=== PATIENT | male | born 1950 | race Caucasian/White ===

== ENCOUNTER 2024-12-20 05:52 | Inpatient (IN) ==
--- NOTE | 2024-11-23 14:50 | PAT Medication Instructions ---
Medication Instructions Date of Service November 23, 2024 Home Medications amlodipine 5 mg tablet 5 mg PO DAILY aspirin 81 mg tablet 81 mg PO DAILY betamethasone dipropionate 0.05 % topical cream 1 applic topical DAILY PRN Skin Irritation cetirizine 10 mg tablet 10 mg PO DAILY cholecalciferol (vitamin D3) 50 mcg (2,000 unit) tablet (Vitamin D3) 50 mcg PO DAILY clonazepam 0.5 mg tablet 0.5 mg PO DAILY ferrous sulfate 325 mg (65 mg iron) tablet (Iron (ferrous sulfate)) 325 mg PO UD fluticasone propionate 50 mcg/actuation nasal spray,suspension 1 spray intranasal DAILY glipizide 10 mg tablet 50 mg PO BID lansoprazole 30 mg capsule,delayed release (Prevacid) 30 mg PO DAILY lisinopril 10 mg tablet 10 mg PO DAILY melatonin 10 mg tablet 10 mg PO HS montelukast 10 mg tablet 10 mg PO DAILY multivitamin 1 tab PO DAILY propranolol 20 mg tablet 20 mg PO BID rosuvastatin 40 mg tablet 40 mg PO DAILY travoprost 0.004 % eye drops (Travatan Z) 1 drp ophthalmic (eye) DAILY venlafaxine 150 mg capsule,extended release 24 hr 150 mg PO DAILY zinc 50 mg tablet 50 mg PO DAILY ASK your prescriber and surgeon aspirin 81 mg tablet 81 mg PO DAILY STOP taking 24 hours before surgery betamethasone dipropionate 0.05 % topical cream 1 applic topical DAILY PRN Skin Irritation DO NOT take the morning of surgery cetirizine 10 mg tablet 10 mg PO DAILY cholecalciferol (vitamin D3) 50 mcg (2,000 unit) tablet (Vitamin D3) 50 mcg PO DAILY ferrous sulfate 325 mg (65 mg iron) tablet (Iron (ferrous sulfate)) 325 mg PO UD glipizide 10 mg tablet 50 mg PO BID lisinopril 10 mg tablet 10 mg PO DAILY montelukast 10 mg tablet 10 mg PO DAILY multivitamin 1 tab PO DAILY zinc 50 mg tablet 50 mg PO DAILY Take morning of surgery With a small sip of water, OTHERWISE NOTHING TO EAT OR DRINK AFTER MIDNIGHT: amlodipine 5 mg tablet 5 mg PO DAILY clonazepam 0.5 mg tablet 0.5 mg PO DAILY fluticasone propionate 50 mcg/actuation nasal spray,suspension 1 spray intranasal DAILY lansoprazole 30 mg capsule,delayed release (Prevacid) 30 mg PO DAILY propranolol 20 mg tablet 20 mg PO BID rosuvastatin 40 mg tablet 40 mg PO DAILY travoprost 0.004 % eye drops (Travatan Z) 1 drp ophthalmic (eye) DAILY venlafaxine 150 mg capsule,extended release 24 hr 150 mg PO DAILY Take evening before surgery glipizide 10 mg tablet 50 mg PO BID melatonin 10 mg tablet 10 mg PO HS propranolol 20 mg tablet 20 mg PO BID Other Notes If you have any questions please call us at [phone] or [phone] or [phone] or [phone]
--- NOTE | 2024-11-28 12:21 | Anesthesiology Consultation ---
Date of Service November 28, 2024 Assessment & Plan (1) Encounter for pre-operative examination: - Check BSG DOS - Infectious disease screening: Per assessment on 11/28/24- No known recent infectious disease contacts or current infectious disease symptoms. - Patient acceptable risk for surgery pending surgeon-ordered PCP preop evaluation (Dr. Stephanie Wallace/Oniel, appt 12/07). Chart Review Chart Review: Patient seen in Pre Admission Testing Teaching & Discussion Pre-Anesthesia Teaching/Discussion Notes: Instructed NPO after midnight before surgery,except medications with 15 cc of water. Medication instructions provided according to the PAT guidelines. History Surgery Operation Date: 12/20/24 07:45 Proposed Procedures p L2-S1 Decompression and Fusion Spinal Cord Monitoring - Evangelist Kaplan, Height/Weight Height: 5 ft 9 in Weight: 87.3 kg Allergies Allergy/AdvReac Type Severity Reaction Status Date / Time No Known Allergies Allergy Verified 11/20/24 14:58 Medications Home Medications Medication Instructions Recorded Confirmed Last Taken amlodipine 5 mg tablet 5 mg PO DAILY 11/20/24 11/20/24 Unknown aspirin 81 mg tablet 81 mg PO DAILY 11/20/24 11/20/24 Unknown betamethasone dipropionate 0.05 % 1 applic topical DAILY PRN Skin 11/20/24 11/20/24 Unknown topical cream Irritation cetirizine 10 mg tablet 10 mg PO DAILY 11/20/24 11/20/24 Unknown clonazepam 0.5 mg tablet 0.5 mg PO DAILY 11/20/24 11/20/24 Unknown ferrous sulfate 325 mg (65 mg 325 mg PO UD 11/20/24 11/20/24 Unknown iron) tablet (Iron (ferrous sulfate)) fluticasone propionate 50 1 spray intranasal BID 11/20/24 11/28/24 Unknown mcg/actuation nasal spray,suspension glipizide 10 mg tablet 10 mg PO DAILY 11/20/24 11/28/24 Unknown lansoprazole 30 mg capsule,delayed 30 mg PO DAILY 11/20/24 11/20/24 Unknown release (Prevacid) lisinopril 10 mg tablet 10 mg PO DAILY 11/20/24 11/20/24 Unknown melatonin 10 mg tablet 10 mg PO HS 11/20/24 11/20/24 Unknown montelukast 10 mg tablet 10 mg PO DAILY 11/20/24 11/20/24 Unknown multivitamin 1 tab PO DAILY 11/20/24 11/20/24 Unknown propranolol 20 mg tablet 20 mg PO BID 11/20/24 11/20/24 Unknown rosuvastatin 40 mg tablet 40 mg PO DAILY 11/20/24 11/20/24 Unknown travoprost 0.004 % eye drops 1 drp ophthalmic (eye) DAILY 11/20/24 11/20/24 Unknown (Travatan Z) venlafaxine 150 mg 150 mg PO DAILY 11/20/24 11/20/24 Unknown capsule,extended release 24 hr zinc 50 mg tablet 50 mg PO DAILY 11/20/24 11/20/24 Unknown cholecalciferol (vitamin D3) 100 PO DAILY 11/28/24 Unknown mcg (4,000 unit) capsule Past Medical History Medical History Anxiety and depression Diabetes mellitus, type 2 NIDDM Dysphagia Chronic, ongoing- specifically with pills; symptoms at baseline s/p unremarkable workup including barium swallow History of hypertension Hx of gastroesophageal reflux (GERD) Hx of hyperlipidemia Sleep apnea CPAP (compliant) Exercise / Class Metabolic Activity II 4-5 Yardwork/Stairs/Walk up hill Past Surgical History Surgical History Hx of colonoscopy ~2016 Hx of meniscectomy of right knee Hx of nasal polypectomy multiple Hx of tonsillectomy Hx of wisdom tooth extraction Nausea and vomiting after administration of anesthetic agent Past Anesthesia History No Hx of Anesthesia Complications and No Family Hx of Anesthesia Complications History of PONV No Hx of Motion Sickness and History of PONV Social History Smoking Status: Former smoker Do You Dip or Chew Tobacco: No Smoking End Date: Remote hx (4 years in college) Hx Alcohol Use: Yes (rarely) alcohol intake frequency: holidays/special occasions only Hx Substance Use: No substance use type: does not use Review of Systems Patient denies chest pain, shortness of breath, dyspnea on exertion, fever, chills, cough, wheezing. Physical Exam Vital Signs BP 146/82 P 53 TEMP 97.9 SP02 97%RA RESP 18 Physical Full cervical extension range of motion. Full TMJ range of motion. TMD > 3.5 finger breaths Mallampati Score IV Dentition: missing molars, dental jew/"re-crowned" (patient unsure of location) Lungs: clear throughout to auscultation Cardiac: regular rate and rhythm, no murmurs noted Spine: normal Carotid arteries: negative bruit Extremities: no LE edema ENMT Mouth: + dentures Lab Results Anesthesia Preop Results Results Anesthesia Widget: WBC 5.73 K/ul (4.8-10.8) 11/28/24 Hgb 13.2 g/dl (14.0-18.0) L 11/28/24 Hct 39.8 % (42.0-52.0) L 11/28/24 Plt 214 K/uL (130-400) 11/28/24 Na 139 mmol/L (136-145) 11/28/24 K 5.0 mmol/L (3.5-5.1) 11/28/24 Cl 104 mmol/L (98-107) 11/28/24 CO2 31 mmol/L (21-32) 11/28/24 BUN 14 mg/dl (6-23) 11/28/24 Creat 0.90 mg/dl (0.6-1.4) 11/28/24 Glucose Level 133 mg/dl (70-99(Fasting)) H 11/28/24 PT 10.9 Seconds (9.0-12.0) 11/28/24 PTT 28 Seconds (21-31) 11/28/24 INR 1.0 (0.9-1.1) 11/28/24 HA1c 7.6 % (4.5-5.6) H 11/28/24 Urine Color Yellow 11/28/24 Urine Appearance Clear (Clear) 11/28/24 Urine pH 7.5 (4.5-7.5) 11/28/24 Urine Specific [place] 1.012 (1.000-1.030) 11/28/24 Urine Protein Negative (Negative) 11/28/24 Urine Glucose (UA) Negative (Negative) 11/28/24 Urine Ketones Negative (Negative) 11/28/24 Urine Blood Negative (Negative) 11/28/24 Urine Nitrite Negative (Negative) 11/28/24 Urine Bilirubin Negative (Negative) 11/28/24 Urine Urobilinogen Negative (Negative) 11/28/24 Urine Leukocyte Esterase Negative (Negative) 11/28/24 Blood Type A Positive 11/28/24 Antibody Screen NEGATIVE 11/28/24 Testing Electrocardiogram Date: 11/28/24 SB at 52bpm. "Otherwise normal ECG" Chest X-Ray Date: 11/28/24 Findings: + NAD
[2024-12-20] MEDS: ACETAMINOPHEN 500 MG TAB PO SCH (06:35)
[2024-12-20] MEDS: LR 15ML/HR IV SCH (06:36)
[2024-12-20] MEDS: CeleBREX 200 MG CAP PO SCH (06:36)
[2024-12-20] MEDS: LR 60ML/HR IV SCH (06:36)
[2024-12-20] MEDS: GABAPENTIN 300 MG CAP PO SCH (06:36)
[2024-12-20] MEDS ORDERED: ONDANSETRON INJ 2 MG/ML 2 ML VIAL IV PRN ×2 (06:58→15:40)
[2024-12-20] MEDS ORDERED: ATROPINE SULFATE 0.1 MG/ML 10ML SYR IV PRN (06:58)
[2024-12-20] MEDS ORDERED: HYDROmorphone INJ 2 MG/ML SYR/VIAL IV PRN (06:58)
[2024-12-20] MEDS ORDERED: PROMETHAZINE HCL 6.25 MG in SODIUM CHLORIDE 0.9% 50 ML IV PRN (06:58)
[2024-12-20] MEDS ORDERED: LIDOCAINE 2% 2 ML VIAL/AMP(20MG/ML) INFIL ONE (07:10)
[2024-12-20] MEDS ORDERED: PROPOFOL IV EMULSION 10 MG/ML 20 ML VIAL IV ONE (07:10)
[2024-12-20] MEDS ORDERED: ONDANSETRON INJ 2 MG/ML 2 ML VIAL ONE (07:10)
[2024-12-20] MEDS ORDERED: DEXAMETHASONE SOD INJ 4 MG/ML VIAL ONE (07:10)
[2024-12-20] MEDS ORDERED: ROCURONIUM BROMIDE 10 MG/ML 5 ML VIAL IV ONE ×2 (07:10→08:10)
[2024-12-20] MEDS ORDERED: MIDAZOLAM HCL 1 MG/ML 2ML VIAL ONE (07:11)
--- NOTE | 2024-12-20 07:37 | History & Physical Bridge Note ---
Date of Service December 20, 2024 History & Physical Bridge Note I have examined the patient, reviewed the History & Physical and in the interval since the performance of the History & Physical I have noted the following changes of clinical significance: no changes noted
--- NOTE | 2024-12-20 07:38 | History & Physical Report ---
Date of Service December 20, 2024 Assessment & Plan (1) Two-level lumbosacral spondylosis with radiculopathy: Plan: L2-S1 decompression and fusion History of Present Illness Chief Complaint: Back and bilateral leg pain Primary Care Provider: KLEBER Jc This is a 74-year-old male who presents with chronic persistent back and bilateral leg pain after failing course of nonoperative care is here for surgical invention. Allergies Allergy/AdvReac Type Severity Reaction Status Date / Time No Known Allergies Allergy Verified 12/20/24 06:10 Home Medications Medication Instructions Recorded Confirmed Type amlodipine 5 mg tablet 5 mg PO DAILY 11/20/24 12/20/24 History aspirin 81 mg tablet 81 mg PO DAILY 11/20/24 12/20/24 History betamethasone dipropionate 0.05 % 1 applic topical DAILY PRN Skin 11/20/24 12/20/24 History topical cream Irritation cetirizine 10 mg tablet 10 mg PO DAILY 11/20/24 12/20/24 History clonazepam 0.5 mg tablet 0.5 mg PO QPM 11/20/24 12/20/24 History ferrous sulfate 325 mg (65 mg 325 mg PO UD 11/20/24 12/20/24 History iron) tablet (Iron (ferrous sulfate)) fluticasone propionate 50 1 spray intranasal BID 11/20/24 12/20/24 History mcg/actuation nasal spray,suspension glipizide 10 mg tablet 10 mg PO DAILY 11/20/24 12/20/24 History lansoprazole 30 mg capsule,delayed 30 mg PO DAILY 11/20/24 12/20/24 History release (Prevacid) lisinopril 10 mg tablet 10 mg PO DAILY 11/20/24 12/20/24 History melatonin 10 mg tablet 10 mg PO HS 11/20/24 12/20/24 History montelukast 10 mg tablet 10 mg PO DAILY 11/20/24 12/20/24 History multivitamin 1 tab PO DAILY 11/20/24 12/20/24 History propranolol 20 mg tablet 20 mg PO BID 11/20/24 12/20/24 History rosuvastatin 40 mg tablet 40 mg PO DAILY 11/20/24 12/20/24 History travoprost 0.004 % eye drops 1 drp ophthalmic (eye) DAILY 11/20/24 12/20/24 History (Travatan Z) venlafaxine 150 mg 150 mg PO DAILY 11/20/24 12/20/24 History capsule,extended release 24 hr zinc 50 mg tablet 50 mg PO DAILY 11/20/24 12/20/24 History cholecalciferol (vitamin D3) 100 4,000 unit PO DAILY 11/28/24 12/20/24 History mcg (4,000 unit) capsule Past Med/Surg History Problem List (Updated 12/20/24 @ 07:38 by Evangelist Kaplan DO) Two-level lumbosacral spondylosis with radiculopathy Encounter for pre-operative examination Medical History Anxiety and depression Diabetes mellitus, type 2 NIDDM Dysphagia Chronic, ongoing- specifically with pills; symptoms at baseline s/p unremarkable workup including barium swallow History of hypertension Hx of gastroesophageal reflux (GERD) Hx of hyperlipidemia Sleep apnea CPAP (compliant) Surgical History Hx of colonoscopy ~2016 Hx of meniscectomy of right knee Hx of nasal polypectomy multiple Hx of tonsillectomy Hx of wisdom tooth extraction Nausea and vomiting after administration of anesthetic agent Social History Smoking Status: Former smoker Smoking End Date: Remote hx (4 years in college); Second Hand Exposure: No; Do You Dip or Chew Tobacco: No; Tobacco Cessation Education Requested by Patient: No Hx Alcohol Use: Yes (rarely) Hx Substance Use: No Preferred Language: Mohawk Communication Ability: Effective Medical Transcriptionist Required: No Beliefs That Will Affect Care: None Current Living Situation: Spouse Other Information That Helps Us Care for You: No Feels Safe at Home: Yes Safety Concerns: Feels Safe At This Time Assistive Devices: Glasses Physical Exam Physical Exam: Patient is alert and oriented Heart regular rhythm Lungs clear Results & Data Results & Data Vital Signs (Past 12 Hours) Vital Signs Temp Pulse Resp BP Pulse Ox O2 Del Method 12/20/24 06:12 36.8 C 53 L 20 163/74 H 97 Room Air
[2024-12-20] MEDS ORDERED: SCOPOLAMINE 1 MG/72 HR TDSY PATCH TD ONE (07:39)
[2024-12-20] MEDS: BUPIVACAINE/EPINEPHRINE 0.25% 1:200,000 30 ML VIAL ONE (08:12)
[2024-12-20] MEDS ORDERED: ePHEDrine sulfate 50 MG/5 ML SYR ONE (09:13)
[2024-12-20] MEDS ORDERED: PHENYLEPHRINE 100MCG/ML 5ML SYR ONE (09:13)
[2024-12-20] MEDS ORDERED: SUGAMMADEX SODIUM 200 MG/2 ML VIAL IV ONE (09:53)
[2024-12-20] MEDS: FLOSEAL HEMOSTATIC MATRIX 10ML TOP ONE (10:20)
[2024-12-20] MEDS: ceFAZolin 330 MG/ML 1 GM VIAL ONE (10:24)
--- NOTE | 2024-12-20 10:34 | Fluoroscopy Report ---
FL lumbar spine 2-3V CLINICAL HISTORY: L2-S1 DECOMPRESSION AND FUSION COMPARISON STUDY: None FLUOROSCOPY TIME: 28 seconds FLUOROSCOPY IMAGES: 4 EXPOSURE DOSE: 20 mGy FINDINGS: Fluoroscopy was provided for lower lumbar fusion. IMPRESSION: Intraoperative fluoroscopy. ACT 112: Negative or not required by law. Electronically signed by: Adelfo Mejia M.D. 12/20/2024 10:32 AM
--- NOTE | 2024-12-20 10:34 | Operative Report ---
Post Operative Report Pre & Post Diagnosis Operation Date: 12/20/24 07:45 Pre-Op Diagnosis: #1 multilevel lumbar spondylosis with radiculopathy #2 lumbar spinal stenosis Post-Op Diagnosis: Same I identified the patient and participated in the time-out.: Yes Procedure Operation Date: 12/20/24 07:45 Actual Procedures #1 lumbar decompression with bilateral medial facetectomies and foraminotomies L2-L3, L3-L4, L4-L5 and L5-S1. #2 posterior spinal fusion L3-S1. #3 placement posterior segmental instrumentation L3-S1 using Augustine. #4 interbody fusion L3- L4, L4-5 and L5-S1. #5 placement of Spira 12 x 26 mm at L3-L4, 11 x 26 mm x 2 at L4-5 and 14 x 26 mm x 2 at L5-S1. #6 placement locally harvested morselized autograft in the posterior lower gutters. #7 placement infuse collagen sponge combined with Koros in the posterior lateral gutters and os design and interbody space. #8 application of versa wrap of the exposed dura. Surgeon Evangelist Kaplan, DO It Architecture Consultant Meagan Anthony Estimated Blood Loss 400 Findings Consistent with Post-Op Diagnosis Specimens None Indications This is a 74-year-old male presents from his diagnosis of failed course of nonoperative care is here for surgical invention. Description of Procedure Patient was met with identified informed consent obtained. Patient was then taken to the operative suite underwent and patient placed in a prone position on the New table atop the Tereso frame. All bony prominences well-padded eyes inspected to ensure no external precipice upon them. This point the lumbar spine was prepped and draped in normal sterile fashion. Sharp dissection with the assistance of Bovie cautery from down to and exposing the lamina transverse processes of L3-L4-L5 and the sacral ala bilaterally. From a caudal to cephalad fashion complete laminectomy L5 L4 L3 and partial laminectomy of L2 was performed including bilateral medial facetectomies and foraminotomies addressing severe neural compression. Pedicle screws were then placed at L3-L4-L5 and S1 bilaterally. Proper sized lyndon was then placed. By way the transforaminal approach on the right discectomy of L5-S1 was performed endplates corrected to subcortical being bone and a 14 x 26 mm spiral cage tapped into position. Then proceeded to the left transforaminal region at L4-5 S1. Again discectomy performed. Endplates guided to subcortical bleeding bone and a second 14 x 26 mm spiral cage tapped into position. Then proceeded L4-[address] of transfer approach and left discectomy performed. Endplates cut the distal cortical bleeding bone. A 11 x 26 mm spiral cage tapped in position. Then proceeded the right transforaminal region at L4-5. Discectomy performed. Endplates guided to subcortical bleeding bone. A second 11 x 26 mm spiral cage tapped in position and lastly approached L3-L4 and by way of transforaminal portion of right a complete discectomy was performed. Endplates guided to subcortical bleeding bone. A 12 x 26 mm spiral cage tapped into position. Please note all cages were packed with os design bone graft prior to placement. The rods were then compressed locked in final position bilaterally. The transverse processes of L3-L4-L5 and the sacral ala burred to subcortical bleeding bone. Infuse collagen sponge, with Koros and local autograft placement posterior gutters. First wrap placed over the exposed dura. 15 round KARSON drain inserted. The incision was then closed with 1 Vicryl the fascia 2-0 Vicryl subcutaneously and 4 Monocryl for final skin closure. Steri-Strips and sterile dressing placed. Patient waken taken to PACU in stable condition. Please note Meagan Anthony was present at the entire procedure and on the patient positioning complex portion of the surgery and final skin closure. Im ordering 10 grams of Collagen Powder ([facility] A6010 Primary Dressing) and 10 bordered super absorbent ([facility] A6196 Sec ondary Dressing) to treat an incision wound that was caused by a spine procedure. The incision is approximately 2 cm(W) x 2 cm(L) down to the spinal column and epidural space 2 cm (D) in size and is a full thickness wound showing no signs of infection. Collagen comes in 1 gram packets so 10 packets were ordered. Given the size of the wound, with moderate exudate I chose to order a 10 day supply. The patient will be provided instructions for proper application of the collagen wound kit. The patient will be asked to apply the collagen powder daily and then cover it with sterile dressings dispensed. Collagen was selected as I expect the collagen to attract monocytes and fibroblasts, act as a sacrificial substrate for MMPs, and ultimately proved a matrix for tissue and vessel growth. The collagen will act as a primary dressing in this scenario. It is medically necessary for proper healing of these wounds to improve bioavailability and contact with each wound surface, this is also to help prevent infection of wounds and promote healing ultimately leading to a better healing outcome and limit the risk of infection. I attest to the content of the Intraoperative Record and any orders documented therein. Any exceptions are noted below.
--- NOTE | 2024-12-20 14:13 | Anesthesiology Progress Note ---
Date of Service December 20, 2024 Anesthesia Post Procedure Vital Signs Vital Signs: Temp Pulse Resp BP Pulse Ox O2 Del Method O2 Flow Rate 12/20/24 13:55 54 L 15 107/60 95 Oxymask 7 12/20/24 13:45 54 L 18 99/49 L 92 Oxymask 8 12/20/24 13:35 53 L 19 107/57 L 93 Oxymask 8 12/20/24 13:25 53 L 17 107/80 93 Oxymask 8 12/20/24 13:15 53 L 19 104/55 L 90 Oxymask 8 12/20/24 13:05 54 L 13 104/49 L 94 Oxymask 8 12/20/24 12:55 56 L 17 116/57 L 92 Oxymask 8 12/20/24 12:45 53 L 16 117/57 L 92 Oxymask 8 12/20/24 12:35 53 L 18 116/58 L 92 Oxymask 8 12/20/24 12:25 54 L 18 115/60 95 Oxymask 8 12/20/24 12:15 51 L 17 117/49 L 93 Oxymask 15 12/20/24 12:05 52 L 14 110/52 L 97 Oxymask 15 12/20/24 11:55 36 C L 53 L 20 121/67 96 Oxymask 15 12/20/24 11:45 50 L 13 111/62 93 Oxymask 15 12/20/24 11:35 51 L 13 125/68 93 Oxymask 15 12/20/24 11:25 52 L 13 116/64 92 Oxymask 15 12/20/24 11:15 55 L 12 134/74 91 Oxymask 15 12/20/24 11:05 57 L 13 133/75 91 Oxymask 15 12/20/24 10:56 36 C L 56 L 16 190/79 H 91 Oxymask 15 12/20/24 06:12 36.8 C 53 L 20 163/74 H 97 Room Air Transfer of Care Handoff Completed per policy Notes Mental Status: alert / awake / arousable and participated in evaluation Patient Amnestic to Procedure: Yes Nausea / Vomiting: adequately controlled Pain: adequately controlled Airway Patency, RR, SpO2: stable & adequate BP & HR: stable & adequate Hydration State: stable & adequate Anesthetic Complications: no major complications apparent Notes: Pt somnolent post-op with SaO2 low 90's on oxygen. Responds to verbal. HR, BP wnl. Encouraged deep breathing, provided incentive spirometer, continue supplemental oxygen. Plan telemetry admission for monitoring.
--- NOTE | 2024-12-20 14:35 | Consultation ---
Date of Consultation December 20, 2024 Assessment & Plan (1) Postoperative hypoxemia: Status post L3-S1 decompression and fusion Noted to be hypoxic following the procedure and has been requiring 8 L to maintain saturation Discussed with anesthesiologist and this is likely secondary to effect of anesthetics and also pain medication Expected to improve within next few hours or so Remains pleasantly confused but no other distress Will check labs and electrolytes and also get an EKG Will be observed in telemetry unit overnight CXR showed mild CHF -received 20mg Lasix IV K was 6.4-Received Killian Gluconate,Insulin and dextrose and Albuterol nebs Will repeat at 8:30 Ekg- Normal (2) Two-level lumbosacral spondylosis with radiculopathy: As above Management will be asked for orthospine Minimal back pain and known radiculopathy (3) Sleep apnea: (4) Anxiety and depression: Will continue his usual medications (5) Diabetes mellitus, type 2: Will put him on sliding scale insulin (6) History of hypertension: Blood pressure remains on the lower side at 107/60 (7) Hx of hyperlipidemia: Continue statin DVT prophylaxis- as per Ortho CODE STATUS full Hospitalist service will follow the patient with you in the hospital History of Present Illness Requesting Physician: Dr. Kaplan Reason for Consultation: Postop management Attending Physician: Evangelist Kaplan, DO History of Present Illness He is a 74-year-old male significant past medical history of sleep apnea, anxiety and depression, GERD, hypertension, hyperlipidemia and type 2 diabetes apparently underwent L3-S1 decompression and fusion today. He has had preop clearance before the procedure which was reviewed and following the procedure he was noted to be very sleepy and confused and also requiring high flow oxygen to maintain saturation. Denies any chest pain, palpitation, any shortness of breath, any abdominal pain nausea or vomiting. He was observed for couple of hours following the procedure and oxygen requirements remain 7 L/min and at that point he was transferred to telemetry unit to observe overnight. Allergies Allergy/AdvReac Type Severity Reaction Status Date / Time No Known Allergies Allergy Verified 12/20/24 06:10 Home Medications Medication Instructions Recorded Confirmed Type amlodipine 5 mg tablet 5 mg PO DAILY 11/20/24 12/20/24 History aspirin 81 mg tablet 81 mg PO DAILY 11/20/24 12/20/24 History betamethasone dipropionate 0.05 % 1 applic topical DAILY PRN Skin 11/20/24 12/20/24 History topical cream Irritation cetirizine 10 mg tablet 10 mg PO DAILY 11/20/24 12/20/24 History clonazepam 0.5 mg tablet 0.5 mg PO QPM 11/20/24 12/20/24 History ferrous sulfate 325 mg (65 mg 325 mg PO UD 11/20/24 12/20/24 History iron) tablet (Iron (ferrous sulfate)) fluticasone propionate 50 1 spray intranasal BID 11/20/24 12/20/24 History mcg/actuation nasal spray,suspension glipizide 10 mg tablet 10 mg PO DAILY 11/20/24 12/20/24 History lansoprazole 30 mg capsule,delayed 30 mg PO DAILY 11/20/24 12/20/24 History release (Prevacid) lisinopril 10 mg tablet 10 mg PO DAILY 11/20/24 12/20/24 History melatonin 10 mg tablet 10 mg PO HS 11/20/24 12/20/24 History montelukast 10 mg tablet 10 mg PO DAILY 11/20/24 12/20/24 History multivitamin 1 tab PO DAILY 11/20/24 12/20/24 History propranolol 20 mg tablet 20 mg PO BID 11/20/24 12/20/24 History rosuvastatin 40 mg tablet 40 mg PO DAILY 11/20/24 12/20/24 History travoprost 0.004 % eye drops 1 drp ophthalmic (eye) DAILY 11/20/24 12/20/24 History (Travatan Z) venlafaxine 150 mg 150 mg PO DAILY 11/20/24 12/20/24 History capsule,extended release 24 hr zinc 50 mg tablet 50 mg PO DAILY 11/20/24 12/20/24 History cholecalciferol (vitamin D3) 100 4,000 unit PO DAILY 11/28/24 12/20/24 History mcg (4,000 unit) capsule Patient History Medical History Anxiety and depression Diabetes mellitus, type 2 NIDDM Dysphagia Chronic, ongoing- specifically with pills; symptoms at baseline s/p unremarkable workup including barium swallow History of hypertension Hx of gastroesophageal reflux (GERD) Hx of hyperlipidemia Sleep apnea CPAP (compliant) Surgical History Hx of colonoscopy ~2017 Hx of meniscectomy of right knee Hx of nasal polypectomy multiple Hx of tonsillectomy Hx of wisdom tooth extraction Nausea and vomiting after administration of anesthetic agent Social History Smoking Status: Former smoker Smoking End Date: Remote hx (4 years in college); Second Hand Exposure: No; Do You Dip or Chew Tobacco: No; Tobacco Cessation Education Requested by Patient: No Hx Alcohol Use: Yes (rarely) Hx Substance Use: No Preferred Language: Burundian Communication Ability: Effective Sample Distributor Required: No Beliefs That Will Affect Care: None Current Living Situation: Spouse Other Information That Helps Us Care for You: No Feels Safe at Home: Yes Safety Concerns: Feels Safe At This Time Assistive Devices: Glasses Review of Systems Review of Systems: All systems reviewed and are unremarkable except as noted below Physical Exam Physical Exam: Lying in bed without any acute distress Constitutional: well developed, well nourished and + ill appearing; no acute distress Eyes: PERRL, conjunctivae normal, anicteric sclerae ENMT: external ear and nose normal, oropharynx normal Neck: trachea midline, no thyromegaly Respiratory: no respiratory distress Auscultation: lungs clear to auscultation bilaterally Cardiovascular: Rate/Rhythm: regular rate, regular rhythm and + bradycardic Heart Sounds: normal S1 and normal S2; no murmur Extremities: no edema Gastrointestinal (Abdomen): Inspection/Auscultation: normal bowel sounds; abdomen not distended Percussion/Palpation: abdomen soft; abdomen nontender Musculoskeletal: No acute arthritis involving any of the joint Skin: no rashes, warm and dry Neurologic: normal touch/pain/proprioception, moves all extremities, awake and + confused ( pleasantly confused); no focal motor deficits Very weak and little drowsy likely due to effect of anesthetics and pain medications Lymphatic: no cervical or axillary lymphadenopathy Results & Data Vital Signs (Past 12 Hours) Vital Signs Temp Pulse Resp BP Pulse Ox O2 Del Method O2 Flow Rate 12/20/24 13:55 54 L 15 107/60 95 Oxymask 7 12/20/24 13:45 54 L 18 99/49 L 92 Oxymask 8 12/20/24 13:35 53 L 19 107/57 L 93 Oxymask 8 12/20/24 13:25 53 L 17 107/80 93 Oxymask 8 12/20/24 13:15 53 L 19 104/55 L 90 Oxymask 8 12/20/24 13:05 54 L 13 104/49 L 94 Oxymask 8 12/20/24 12:55 56 L 17 116/57 L 92 Oxymask 8 12/20/24 12:45 53 L 16 117/57 L 92 Oxymask 8 12/20/24 12:35 53 L 18 116/58 L 92 Oxymask 8 12/20/24 12:25 54 L 18 115/60 95 Oxymask 8 12/20/24 12:15 51 L 17 117/49 L 93 Oxymask 15 12/20/24 12:05 52 L 14 110/52 L 97 Oxymask 15 12/20/24 11:55 36 C L 53 L 20 121/67 96 Oxymask 15 12/20/24 11:45 50 L 13 111/62 93 Oxymask 15 12/20/24 11:35 51 L 13 125/68 93 Oxymask 15 12/20/24 11:25 52 L 13 116/64 92 Oxymask 15 12/20/24 11:15 55 L 12 134/74 91 Oxymask 15 12/20/24 11:05 57 L 13 133/75 91 Oxymask 15 12/20/24 10:56 36 C L 56 L 16 190/79 H 91 Oxymask 15 12/20/24 06:12 36.8 C 53 L 20 163/74 H 97 Room Air Medications Administered Current Inpatient Medications Acetaminophen (Acetaminophen 500 Mg Tab) 1,000 mg PO PREOP FORREST Stop: 12/20/24 18:00 Last Admin: 12/20/24 06:35 Dose: 1,000 mg Atropine Sulfate (Atropine Sulfate 0.1 Mg/Ml 10ml Syr) 0.5 mg IV Q1M PRN PRN Reason: PACU Use-HR<40 &/or Bradycardi Stop: 12/20/24 14:58 Celecoxib (Celebrex 200 Mg Cap) 200 mg PO PREOP FORREST Stop: 12/20/24 18:00 Last Admin: 12/20/24 06:36 Dose: 200 mg Ephedrine Sulfate (Ephedrine Sulfate 50 Mg/Ml Amp) 5 mg IV Q5M PRN PRN Reason: PACU Use Only-SBP<90 mmHg Stop: 12/20/24 14:58 Fentanyl Citrate (Fentanyl Citrate Pf 100 Mcg/2 Ml Vial) 50 mcg IV Q5M PRN PRN Reason: PACU Use Only-Pain Stop: 12/20/24 14:59 Gabapentin (Gabapentin 300 Mg Cap) 300 mg PO PREOP FORREST Stop: 12/20/24 18:00 Last Admin: 12/20/24 06:36 Dose: 300 mg Hydromorphone HCl (Hydromorphone Inj 2 Mg/Ml Syr/Vial) 0.5 mg IV Q5M PRN PRN Reason: PACU Use Only-Pain Stop: 12/20/24 14:59 Lactated Ringer's (Lr) 1,000 mls @ 60 mls/hr IV .[id number] FORREST Stop: 12/20/24 22:39 Last Admin: 12/20/24 06:36 Dose: Not Given Cefazolin Sodium (Ancef 2000mg) 2,000 mg in 15 mls @ 3.75 mls/min IV PREOP FORREST; Protocol Stop: 12/20/24 18:00 Last Admin: 12/20/24 08:00 Dose: 3.75 mls/min Lactated Ringer's (Lr) 1,000 mls @ 15 mls/hr IV .Q24H FORREST Stop: 12/21/24 05:59 Last Infusion: 12/20/24 07:44 Dose: Infused Promethazine HCl 6.25 mg/ (Sodium Chloride) 50.25 mls @ 204 mls/hr IV ONCE PRN PRN Reason: PACU Use Only-Nausea/Vomiting Stop: 12/20/24 15:00 Ondansetron HCl (Ondansetron Inj 2 Mg/Ml 2 Ml Vial) 4 mg IV ONCE PRN PRN Reason: PACU Use Only-Nausea/Vomiting Stop: 12/20/24 14:59
--- NOTE | 2024-12-20 15:03 | XRay Report ---
XR chest 1V portable CLINICAL HISTORY: CHF COMPARISON STUDY: 11/28/2024 FINDINGS: Heart size and pulmonary vasculature are normal. There are interval reticular and patchy pe rihilar pulmonary opacities. No pleural effusion or pneumothorax. IMPRESSION: Bilateral pulmonary opacities could represent pulmonary edema or pneumonia. ACT 112: Negative or not required by law. Electronically signed by: Adelfo Mejia M.D. 12/20/2024 3:02 PM
[2024-12-20] MEDS ORDERED: ONDANSETRON 4 MG OD TAB PO PRN (15:40)
[2024-12-20] MEDS ORDERED: MAGNESIUM HYDROXIDE SUSP 30 ML UDC PO PRN (15:40)
[2024-12-20] MEDS ORDERED: DO NOT ADMINISTER FLU VACCINE PRN (15:40)
[2024-12-20] MEDS ORDERED: SOD PHOSPHATE/SOD BIPHOSPHATE ENEMA 132 ML BTL PR PRN (15:40)
[2024-12-20] MEDS ORDERED: diphenhydrAMINE Capsule 25 MG CAP PO PRN (15:40)
[2024-12-20] MEDS ORDERED: METOCLOPRAMIDE HCL INJ 5 MG/ML 2 ML VIAL IV PRN (15:40)
[2024-12-20] MEDS ORDERED: PROMETHAZINE 12.5 MG/50.5 ML BAG IV PRN (15:40)
[2024-12-20] MEDS ORDERED: DO NOT ADMINISTER PNEUMOCOCCAL VACCINE PRN (15:40)
[2024-12-20] MEDS ORDERED: ALUMINUM/MAGNESIUM SUSP 30 ML UDC PO PRN (15:40)
[2024-12-20] MEDS ORDERED: NALOXONE HCL 0.4 MG/1 ML VIAL/CARP IV PRN (15:40)
[2024-12-20] MEDS ORDERED: FAMOTIDINE 20 MG TAB PO PRN (15:40)
[2024-12-20] MEDS ORDERED: BETAMETHASONE DIP AUG (DIPROLENE) 0.05% CR 15 GM TUBE EXT PRN (15:45)
[2024-12-20 16:05] LABS: Hematocrit (blood only) 35.8 % (42.0-52.0); Hemoglobin 12.2 g/dl (14.0-18.0); Mean Corpuscular Hemoglobin 30.0 pg (25.0-34.0); Mean Corpuscular Volume 88.0 fL (80.0-100.0); Platelet Count 193 K/uL (130-400); RDW Standard Deviation 42.2 fL (36.4-46.3); Red Blood Count 4.07 M/uL (4.70-6.10); White Blood Count 15.38 K/ul (4.8-10.8)
[2024-12-20 16:19] LABS: Anion Gap 3.0 (3-11); Blood Urea Nitrogen 25.0 mg/dl (6-23); Calcium 7.9 mg/dl (8.6-10.3); Carbon Dioxide 27.0 mmol/L (21-32); Chloride 105.0 mmol/L (98-107); Creatinine Clr Calc Pharmacy 63.8 ml/min; Glucose 254.0 mg/dl (70-99(Fasting)); Potassium 6.4 mmol/L (3.5-5.1); Sodium 135.0 mmol/L (136-145)
[2024-12-20] MEDS ORDERED: INSULIN HUMAN REGULAR PER UNIT 10 UNITS in SYRINGE 0 ML IV STA (16:33)
[2024-12-20] MEDS: FUROSEMIDE INJ 20 MG/2 ML VIAL IV ONE (16:36)
[2024-12-20 16:49] LABS: Immature Granulocytes # (auto) 0.07 K/uL (0.01-0.20); Immature Granulocytes % (auto) 0.5 %
[2024-12-20] MEDS: INSULIN HUMAN REGULAR PER UNIT 10 UNITS in SYRINGE 9.9 ML IV STA (17:01)
[2024-12-20] MEDS: DEXTROSE 50% 50 ML SYRINGE IV STA (17:01)
[2024-12-20] MEDS: CALCIUM GLUCONATE 1,000 MG/60 ML BAG IV STA (17:15)
[2024-12-20] MEDS ORDERED: CARBOHYDRATES FOR HYPOGLYCEMIA PO PRN (17:20)
[2024-12-20] MEDS ORDERED: DEXTROSE 50% 50 ML SYRINGE IV PRN (17:20)
[2024-12-20] MEDS ORDERED: GLUCAGON FOR INJ 1 MG VIAL SQ PRN (17:20)
[2024-12-20] MEDS ORDERED: GLUCOSE 10 TAB/TUBE PO PRN (17:20)
[2024-12-20] MEDS ORDERED: GLUCOSE 40% GEL 15 GM TUBE PO PRN (17:20)
[2024-12-20] MEDS: INSULIN ASPART PER UNIT CHARGE SC SCH (17:47)
[2024-12-20] MEDS: ALBUTEROL 0.083% NEBU SOLN 3 ML VIAL NEB STA (17:54)
[2024-12-20] MEDS: INSULIN ASPART PER UNIT CHARGE ONE (19:31)
[2024-12-20] MEDS: ACETAMINOPHEN 1,000 MG/100 ML VIAL IV PRN (20:17)
[2024-12-20] MEDS: DOCUSATE SODIUM/SENNA 50/8.6MG TAB PO SCH (20:19)
[2024-12-20] MEDS: clonazePAM 0.5 MG TAB PO SCH (20:19)
[2024-12-20] MEDS: FLUTICASONE PROPIONATE NA SPR 16 GM BTL SCH (20:23)
[2024-12-20] MEDS: MELATONIN 3 MG TAB PO SCH (20:23)
[2024-12-20] MEDS: PROPRANOLOL HCL 20 MG TAB PO SCH (20:24)
[2024-12-20] MEDS: INSULIN ASPART PER UNIT CHARGE SC STA (20:46)
[2024-12-20 20:54] LABS: Hematocrit (blood only) 35.7 % (42.0-52.0); Hemoglobin 11.9 g/dl (14.0-18.0)
[2024-12-20 21:15] LABS: Anion Gap 8.0 (3-11); Blood Urea Nitrogen 25.0 mg/dl (6-23); Calcium 8.4 mg/dl (8.6-10.3); Carbon Dioxide 27.0 mmol/L (21-32); Chloride 103.0 mmol/L (98-107); Creatinine Clr Calc Pharmacy 53.4 ml/min; Glucose 234.0 mg/dl (70-99(Fasting)); Potassium 4.8 mmol/L (3.5-5.1); Sodium 138.0 mmol/L (136-145)
[2024-12-21] MEDS: POLYETHYLENE (MIRALAX) 17 GM PACK PO SCH (05:56)
[2024-12-21 06:53] LABS: Anion Gap 7.0 (3-11); Blood Urea Nitrogen 32.0 mg/dl (6-23); Calcium 8.2 mg/dl (8.6-10.3); Carbon Dioxide 28.0 mmol/L (21-32); Chloride 102.0 mmol/L (98-107); Creatinine Clr Calc Pharmacy 54.5 ml/min; Glucose 183.0 mg/dl (70-99(Fasting)); Magnesium 1.6 mg/dl (1.7-2.4); Potassium 4.7 mmol/L (3.5-5.1); Sodium 137.0 mmol/L (136-145)
[2024-12-21 06:58] LABS: Hematocrit (blood only) 31.4 % (42.0-52.0); Hemoglobin 10.5 g/dl (14.0-18.0); Immature Granulocytes # (auto) 0.14 K/uL (0.01-0.20); Immature Granulocytes % (auto) 0.6 %; Mean Corpuscular Hemoglobin 29.4 pg (25.0-34.0); Mean Corpuscular Volume 88.0 fL (80.0-100.0); Platelet Count 190 K/uL (130-400); RDW Standard Deviation 42.8 fL (36.4-46.3); Red Blood Count 3.57 M/uL (4.70-6.10); White Blood Count 23.33 K/ul (4.8-10.8)
[2024-12-21] MEDS: ACETAMINOPHEN 500 MG TAB PO PRN (07:14)
[2024-12-21] MEDS: MAGNESIUM SULFATE / D5W 1 GM/100 ML BAG IV SCH (08:30)
[2024-12-21] MEDS ORDERED: NON-FORMULARY MEDICATION (Zinc 50 mg Tablet) PO SCH (09:00)
[2024-12-21] MEDS ORDERED: CETIRIZINE HCL 10 MG TABLET PO SCH (09:00)
[2024-12-21] MEDS ORDERED: glipiZIDE 5 MG TAB PO SCH (09:00)
[2024-12-21] MEDS: dexAMETHasone 6 MG in SYRINGE 0 ML IV SCH (09:20)
[2024-12-21] MEDS: ROSUVASTATIN CALCIUM 20 MG TAB PO SCH (09:20)
[2024-12-21] MEDS: VENLAFAXINE HCL XR 150 MG CAPXR PO SCH (09:21)
[2024-12-21] MEDS: MULTIVITAMIN TAB PO SCH (09:21)
[2024-12-21] MEDS: MONTELUKAST SODIUM 10 MG TABLET PO SCH (09:21)
[2024-12-21] MEDS: ASPIRIN 81 MG ECTAB PO SCH (09:22)
[2024-12-21] MEDS: CHOLECALCIFEROL 25 MCG (1000 UNITS) TAB PO SCH (09:23)
[2024-12-21] MEDS: TRAVOPROST Z 0.004% OPH SOLN 2.5 ML BTL OP SCH (09:25)
[2024-12-21] MEDS ORDERED: PHARMACY GLYCEMIC MGMT CONSULT PRN (10:34)
--- NOTE | 2024-12-21 11:04 | Orthopedic Progress Note ---
Date of Service December 21, 2024 Assessment & Plan (1) Two-level lumbosacral spondylosis with radiculopathy: Plan: This time we will initiate physical therapy. Continue to monitor his KARSON output. Determine disposition in the next few days. Admission and Anticipated Discharge Date Admission Date: December 20, 2024 Subjective Patient had a difficult evening last night. This morning he is comfortable. Denies any pain. Physical Exam Physical Exam: On exam he identifies who I am. He demonstrates good strength testing. Results & Data Vital Signs (Past 12 Hours) Vital Signs Temp Pulse Resp BP BP Pulse Ox O2 Del Method 12/21/24 09:13 106/66 12/21/24 09:05 121/81 12/21/24 07:39 36.8 C 90 18 126/67 90 Room Air 12/21/24 03:47 92 Room Air 12/21/24 03:05 37.0 C 83 19 116/68 94 Nasal Cannula 12/21/24 02:28 118/75 96 Nasal Cannula 12/21/24 00:57 98 Nasal Cannula O2 Flow Rate 12/21/24 09:13 12/21/24 09:05 12/21/24 07:39 12/21/24 03:47 12/21/24 03:05 12/21/24 02:28 2 12/21/24 00:57 3 Queries Orthopedic Spine Acute Posthemorrhagic Anemia: Yes
--- NOTE | 2024-12-21 12:49 | Hospitalist Progress Note ---
Date of Service December 21, 2024 Assessment & Plan (1) Hyperactive delirium after surgical procedure: Plan: -patient alert and orriented x2 on exam -improved mentation from yesterday -suspect post operative, hospital acquired delirium Plan: -delirium precautions -avoid anticholinergics -treat pain (2) Postoperative hypoxemia: Plan: -resolved (3) Two-level lumbosacral spondylosis with radiculopathy: Plan: -Status post L3-S1 decompression and fusion -POD 1 -trend Hgb, leukocytosis, creatinine in post op setting (4) Acute blood loss anemia: Plan: -significant blood loss noted in KARSON drain -also some blood in urine Plan: -monitor KARSON drain output -trend Hgb (5) Sleep apnea: (6) Anxiety and depression: Plan: -Will continue his usual medications (7) Diabetes mellitus, type 2: Plan: -Will put him on sliding scale insulin (8) Hx of hyperlipidemia: Plan: -Continue statin Plan I spent a total of 45 minutes in direct patient care, including [id number] time with the patient and/or family, reviewing medical records, ordering and reviewing diagnostic tests, and coordinating care with other healthcare providers. This time includes: history taking, physical examination, medical decision making, counseling, ECG interpretation, imaging interpretation, lab interpretation, orders, and education, excluding time spent in the performance of separately billed services. Admission and Anticipated Discharge Date Admission Date: December 20, 2024 Subjective Patient seen and examined at bedside. Patient doing ok today, alert and oriented x2. Endorses some pain in back otherwise feels ok. updated on plan of care. Review of Systems Review of Systems: CONSTITUTIONAL: Patient denies fevers, chills, sweats and weight changes. EYES: Patient denies any visual symptoms. EARS, NOSE, AND THROAT: No difficulties with hearing. No symptoms of rhinitis or sore throat. CARDIOVASCULAR: Patient denies chest pains, palpitations, orthopnea and paroxysmal nocturnal dyspnea. RESPIRATORY: No dyspnea on exertion, no wheezing or cough. GI: No nausea, vomiting, diarrhea, constipation, abdominal pain, hematochezia or melena. : No urinary hesitancy or dribbling. No nocturia or urinary frequency. No abnormal urethral discharge. MUSCULOSKELETAL: back pain NEUROLOGIC: No chronic headaches, no seizures. Patient denies numbness, tingling or weakness. PSYCHIATRIC: Patient denies problems with mood disturbance. No problems with anxiety. ENDOCRINE: No excessive urination or excessive thirst. DERMATOLOGIC: Patient denies any rashes or skin changes. Physical Exam Physical Exam: Gen: A&O 2 NAD HEENT: NCAT, EOMI, not icteric. External ears normal. No rhinorrhea. Moist mucous membranes. Neck: Supple, full range of motion, no observable masses, No meningeal sign. Lungs: No Respiratory distress. CV: RRR, no edema. Abdomen: Soft, nondistended, No rebound tenderness. MSK: No joint swelling, no redness. Skin: No rashes, petechiae, lesions. Normal color per patient. Neuro: Normal Gait, Grossly intact. Psych: Appropriate for situation. Results & Data Results & Data Vital Signs (Past 12 Hours) Vital Signs Temp Pulse Resp BP BP Pulse Ox O2 Del Method 12/21/24 11:54 36.7 C 88 18 99/59 L 97 Room Air 12/21/24 11:10 36.8 C 59 L 18 108/55 L 95 Room Air 12/21/24 09:13 106/66 12/21/24 09:05 121/81 12/21/24 07:39 36.8 C 90 18 126/67 90 Room Air 12/21/24 03:47 92 Room Air 12/21/24 03:05 37.0 C 83 19 116/68 94 Nasal Cannula 12/21/24 02:28 118/75 96 Nasal Cannula 12/21/24 00:57 98 Nasal Cannula O2 Flow Rate 12/21/24 11:54 12/21/24 11:10 12/21/24 09:13 12/21/24 09:05 12/21/24 07:39 12/21/24 03:47 12/21/24 03:05 12/21/24 02:28 2 12/21/24 00:57 3 Laboratory Results -personally reviewed, WBC 23 in post op setting, Hgb downtrended in post op setting, mg 1.6 and replenished Medications Administered Acetaminophen (Acetaminophen 500 Mg Tab) 1,000 mg PO Q8H PRN PRN Reason: MILD Pain (1,2,3) & Pre PT Stop: 01/19/25 15:39 Last Admin: 12/21/24 07:14 Dose: 1,000 mg Documented By: KRISHNA Amlodipine Besylate (Amlodipine Besylate 5 Mg Tab) 5 mg PO DAILY FORREST Stop: 01/20/25 08:59 Last Admin: 12/21/24 09:22 Dose: 5 mg Documented By: KRISHNA Aspirin (Aspirin 81 Mg Ectab) 81 mg PO DAILY FORREST Stop: 01/20/25 08:59 Last Admin: 12/21/24 09:22 Dose: 81 mg Documented By: KRISHNA Clonazepam (Clonazepam 0.5 Mg Tab) 0.5 mg PO QPM FORREST Stop: 01/19/25 20:59 Last Admin: 12/20/24 20:19 Dose: 0.5 mg Documented By: KWAN Fluticasone Propionate (Fluticasone Propionate Na Spr 16 Gm Btl) 1 sprays NA BID FORREST Stop: 01/19/25 20:59 Last Admin: 12/21/24 09:23 Dose: 1 sprays Documented By: Admin: 12/20/24 20:23 Dose: 1 sprays Documented By: KWAN Acetaminophen (Ofirmev) 1,000 mg in 100 mls @ 400 mls/hr IV Q8H PRN PRN Reason: MILD Pain (1,2,3) & Pre PT Stop: 12/21/24 15:40 Last Infusion: 12/20/24 20:35 Dose: Infused Documented By: Admin: 12/20/24 20:17 Dose: 400 mls/hr Documented By: KWAN Dexamethasone 6 mg/ Syringe 1.5 mls @ 1 mls/min IV DAILY FORREST Stop: 12/23/24 09:02 Last Admin: 12/21/24 09:20 Dose: 1 mls/min Documented By: KRISHNA Insulin Aspart (Insulin Aspart Per Unit Charge) 0 units SC ACHS FORREST Stop: 01/19/25 20:59 Last Admin: 12/21/24 08:27 Dose: 7 units Documented By: KRISHNA Co-signed By: Admin: 12/20/24 17:47 Dose: 8 units Documented By: KRISHNA Co-signed By: LINSEY Lisinopril (Lisinopril 10 Mg Tab) 10 mg PO DAILY FORREST Stop: 01/20/25 08:59 Last Admin: 12/21/24 09:21 Dose: 10 mg Documented By: KRISHNA Montelukast Sodium (Montelukast Sodium 10 Mg Tablet) 10 mg PO DAILY FORREST Stop: 01/20/25 08:59 Last Admin: 12/21/24 09:21 Dose: 10 mg Documented By: KRISHNA Multivitamins (Multivitamin Tab) 1 tab PO DAILY FORREST Stop: 01/20/25 08:59 Last Admin: 12/21/24 09:21 Dose: 1 tab Documented By: KRISHNA Pantoprazole Sodium (Pantoprazole 40 Mg Tab) 40 mg PO DAILY FORREST Stop: 01/20/25 08:59 Last Admin: 12/21/24 09:21 Dose: 40 mg Documented By: KRISHNA Polyethylene Glycol (Polyethylene (Miralax) 17 Gm Pack) 17 gm PO Q6 FORREST Stop: 01/20/25 05:59 Last Admin: 12/21/24 05:56 Dose: 17 gm Documented By: KWAN Propranolol HCl (Propranolol Hcl 20 Mg Tab) 20 mg PO BID FORREST Stop: 01/19/25 20:59 Last Admin: 12/21/24 09:21 Dose: 20 mg Documented By: Admin: 12/20/24 20:24 Dose: 20 mg Documented By: KWAN Rosuvastatin Calcium (Rosuvastatin Calcium 20 Mg Tab) 40 mg PO DAILY FORREST Stop: 01/20/25 08:59 Last Admin: 12/21/24 09:20 Dose: 40 mg Documented By: KRISHNA Senna/Docusate Sodium (Docusate Sodium/Senna 50/8.6mg Tab) 2 tab PO HS FORREST Stop: 01/19/25 20:59 Last Admin: 12/20/24 20:19 Dose: 2 tab Documented By: KWAN Travoprost (Travoprost Z 0.004% Oph Soln 2.5 Ml Btl) 1 drops OP DAILY FORREST Stop: 01/20/25 08:59 Last Admin: 12/21/24 09:25 Dose: 1 drops Documented By: KRISHNA Venlafaxine HCl (Venlafaxine Hcl Xr 150 Mg Capxr) 150 mg PO DAILY FORREST Stop: 01/20/25 08:59 Last Admin: 12/21/24 09:21 Dose: 150 mg Documented By: KRISHNA Vitamin D (Cholecalciferol 25 Mcg (1000 Units) Tab) 100 mcg PO DAILY FORREST Stop: 01/20/25 08:59 Last Admin: 12/21/24 09:23 Dose: 100 mcg Documented By: KRISHNA
--- NOTE | 2024-12-21 14:19 | Electrocardiogram Report ---
Test Reason : Blood Pressure : */* mmHG Vent. Rate : 60 BPM Atrial Rate : 60 BPM P-R Int : 152 ms QRS Dur : 102 ms QT Int : 440 ms P-R-T Axes : 53 50 25 degrees QTcB Int : 440 ms Normal sinus rhythm Normal ECG When compared with ECG of 28-Nov-2024 13:36, No significant change was found Confirmed by Fili Schultz ([id number]) on 12/21/2024 2:19:07 PM Referred By: Evangelist Kaplan Confirmed By: Fili Schultz
[2024-12-21] MEDS: LACTATED RINGER'S 1,000 ML IV SCH (15:03)
--- NOTE | 2024-12-21 15:09 | Pharmacy Report ---
Pharmacy Glycemic Short Note 2 - Date of Service December 21, 2024 - Glycemic Short BSG Results (Last 24 hours): 12/20/24 12/20/24 12/20/24 15:43 16:06 17:03 Glucose 254 H POC Glucose 209 H 233 H 12/20/24 12/20/24 12/20/24 17:18 18:03 20:12 Glucose 234 H POC Glucose 378 H* 298 H 12/20/24 12/21/24 12/21/24 20:21 02:29 06:13 Glucose 183 H POC Glucose 215 H 174 H 12/21/24 12/21/24 08:18 11:08 Glucose POC Glucose 224 H 146 H OUTPATIENT ANTIDIABETIC REGIMEN: * glipizide 10mg po daily HbA1c: 7.6% on 11/28/24 ASSESSMENT: * Huber is a 74 year old male who was admitted last evening for spinal decompression/fusion. Today is POD #1 and pharmacy has been consulted for glycemic management while he is admitted. * BSGs were all above goal postop yesterday. 10 units of regular IV insulin were given and the provider started him on a conservative bolus insulin regimen. * Fasting BSG was 224mg/dL this morning and corrected to 146mg/dL at lunch time. Carb ratio was tightened and a Lantus scale (0-5-or 10 units depending on BSG) was added at HS. Patient is on daily iv dexamethasone so it is expected that his blood glucose will increase again. PLAN FOR INPATIENT GLYCEMIC CONTROL: * Hold outpatient oral diabetes medications * Basal insulin * Lantus scale (0, 5, or 10 units depending on BSG) at HS * Bolus insulin * NovoLog per scale ACHS or Q6hrs while NPO * Goal Range: Low 110 mg/dL - High 140 mg/dL * Correction Factor: 30 mg/dL/unit * Nutritional / Prandial insulin per carb ratio of 1 unit per 12 grams CHO consumed
[2024-12-21 15:29] LABS: Hematocrit (blood only) 29.9 % (42.0-52.0); Hemoglobin 10.2 g/dl (14.0-18.0); Mean Corpuscular Hemoglobin 30.0 pg (25.0-34.0); Mean Corpuscular Volume 87.9 fL (80.0-100.0); Platelet Count 180 K/uL (130-400); RDW Standard Deviation 43.5 fL (36.4-46.3); Red Blood Count 3.40 M/uL (4.70-6.10); White Blood Count 20.73 K/ul (4.8-10.8)
[2024-12-21] MEDS: LANTUS PER UNIT CHARGE SC SCH (21:13)
[2024-12-21] MEDS: HYDROmorphone INJ 0.5 MG/0.5 ML SYR IV PRN (21:13)
[2024-12-21] MEDS: MELATONIN 3 MG TAB PO SCH (21:13)
[2024-12-22 06:31] LABS: Hematocrit (blood only) 28.2 % (42.0-52.0); Hemoglobin 9.6 g/dl (14.0-18.0); Mean Corpuscular Hemoglobin 29.8 pg (25.0-34.0); Mean Corpuscular Volume 87.6 fL (80.0-100.0); Platelet Count 167 K/uL (130-400); RDW Standard Deviation 42.7 fL (36.4-46.3); Red Blood Count 3.22 M/uL (4.70-6.10); White Blood Count 19.19 K/ul (4.8-10.8)
[2024-12-22] MEDS: HYDROmorphone INJ 1 MG/ML SYRINGE IV PRN (06:49)
[2024-12-22 07:11] LABS: Anion Gap 3.0 (3-11); Blood Urea Nitrogen 34.0 mg/dl (6-23); Calcium 8.3 mg/dl (8.6-10.3); Carbon Dioxide 31.0 mmol/L (21-32); Chloride 104.0 mmol/L (98-107); Creatinine Clr Calc Pharmacy 55.0 ml/min; Glucose 169.0 mg/dl (70-99(Fasting)); Magnesium 2.2 mg/dl (1.7-2.4); Potassium 5.2 mmol/L (3.5-5.1); Sodium 138.0 mmol/L (136-145)
--- NOTE | 2024-12-22 08:05 | Orthopedic Progress Note ---
Date of Service December 22, 2024 Assessment & Plan (1) Two-level lumbosacral spondylosis with radiculopathy: Plan: The still continue to watch him. I would encourage therapy as tolerated. Maintain his KARSON drain. Admission and Anticipated Discharge Date Admission Date: December 20, 2024 Subjective Patient is sleeping. The nurses at the bedside. He has been struggling with significant sundowning. He has just fallen asleep since roughly 5 AM today. Physical Exam Physical Exam: Patient is getting up out of bed on his own and going to the bathroom. Results & Data Vital Signs (Past 12 Hours) Vital Signs Temp Pulse Resp BP Pulse Ox O2 Del Method O2 Flow Rate 12/22/24 06:14 36.5 C 54 L 16 147/56 H 98 Nasal Cannula 12/22/24 01:27 36.9 C 62 16 128/63 94 Nasal Cannula 2 12/21/24 22:01 36.9 C 68 16 135/66 92 Nasal Cannula 2 12/21/24 21:00 Nasal Cannula 2 Queries Orthopedic Spine Acute Posthemorrhagic Anemia: Yes
[2024-12-22 08:39] LABS: Iron 21.0 mcg/dl (35-175); Total Iron Binding Cap Calc 252.0 mcg/dl (250-450); Transferrin 205.0 mg/dl (200-360); Transferrin (FE) Percent Satur 8.0 % (20-50)
[2024-12-22] MEDS: SODIUM CHLORIDE 0.9% 500 ML IV SCH (08:42)
[2024-12-22] MEDS: LANTUS PER UNIT CHARGE SC ONE (08:46)
[2024-12-22 08:58] LABS: Ferritin 67.5 ng/ml (8-388)
[2024-12-22] MEDS ORDERED: FERROUS SULFATE 325 MG TAB PO SCH (09:00)
[2024-12-22] MEDS: SODIUM ZIRCONIUM CYCLOSILICATE 10 GM PACKET PO ONE (09:10)
--- NOTE | 2024-12-22 10:31 | CT Scan Report ---
HISTORY: Postoperative delirium. Back surgery on 12/20/2024. TECHNIQUE: CT of the head without contrast. Images are presented in axial, sagittal, and coronal reformats. COMPARISON: None. FINDINGS: No evidence of intracranial hemorrhage, abnormal extra axial fluid collection, mass effect, or midline shift. Mild volume loss and chronic microvascular ischemic changes. Mild intracranial atherosclerotic vascular calcifications.Ventricular caliber is appropriate. Fourth ventricle is midline. Basal cisterns are patent.[place]-white differentiation is maintained. Globes and orbits are unremarkable.Soft tissues about the skull base and scalp are unremarkable.Severe mucoperiosteal thickening of the maxillary sinuses. Partial opacification of the ethmoid air cells. Complete frontal sinus opacification. Sphenoid sinus mucosal thickening and air-fluid level. Mastoid air cells are well aerated. No calvarial fracture. IMPRESSION: * No acute intracranial findings. If there is concern for acute infarct, Brain MRI with diffusion weighted imaging should be considered for more sensitive evaluation. * Mild volume loss and chronic microvascular ischemic changes. * Severe acute on chronic pansinusitis. Electronically signed by Juma Rosenthal 12-22-2024 10:30 AM
--- NOTE | 2024-12-22 12:15 | Hospitalist Progress Note ---
Date of Service December 22, 2024 Assessment & Plan (1) Hyperactive delirium after surgical procedure: Plan: -patient alert and orriented x2 on exam -improved mentation from yesterday -suspect post operative, hospital acquired delirium Plan: -delirium precautions -avoid anticholinergics -treat pain (2) Postoperative hypoxemia: Plan: -resolved (3) Two-level lumbosacral spondylosis with radiculopathy: Plan: -Status post L3-S1 decompression and fusion -POD 2 -trend Hgb, leukocytosis, creatinine in post op setting (4) Acute blood loss anemia: Plan: -significant blood loss noted in KARSON drain -also some blood in urine Plan: -monitor KARSON drain output -trend Hgb -check iron studies, replenish if needed given increased drain blood loss (5) Sleep apnea: (6) Anxiety and depression: Plan: -Will continue his usual medications (7) Diabetes mellitus, type 2: Plan: -Will put him on sliding scale insulin (8) Hx of hyperlipidemia: Plan: -Continue statin Plan I spent a total of 40 minutes in direct patient care, including [id number] time with the patient and/or family, reviewing medical records, ordering and reviewing diagnostic tests, and coordinating care with other healthcare providers. This time includes: history taking, physical examination, medical decision making, counseling, ECG interpretation, imaging interpretation, lab interpretation, orders, and education, excluding time spent in the performance of separately billed services. Admission and Anticipated Discharge Date Admission Date: December 20, 2024 Subjective Patient seen and examined at bedside. Patient doing better today, alert and orriented x3 this morning with slight confusion. Struggling to sleep per nursing team. Review of Systems Review of Systems: CONSTITUTIONAL: Patient denies fevers, chills, sweats and weight changes. EYES: Patient denies any visual symptoms. EARS, NOSE, AND THROAT: No difficulties with hearing. No symptoms of rhinitis or sore throat. CARDIOVASCULAR: Patient denies chest pains, palpitations, orthopnea and paroxysmal nocturnal dyspnea. RESPIRATORY: No dyspnea on exertion, no wheezing or cough. GI: No nausea, vomiting, diarrhea, constipation, abdominal pain, hematochezia or melena. : No urinary hesitancy or dribbling. No nocturia or urinary frequency. No abnormal urethral discharge. MUSCULOSKELETAL: back pain NEUROLOGIC: No chronic headaches, no seizures. Patient denies numbness, tingling or weakness. PSYCHIATRIC: Patient denies problems with mood disturbance. No problems with anxiety. ENDOCRINE: No excessive urination or excessive thirst. DERMATOLOGIC: Patient denies any rashes or skin changes. Physical Exam Physical Exam: Gen: A&O 3 NAD HEENT: NCAT, EOMI, not icteric. External ears normal. No rhinorrhea. Moist mucous membranes. Neck: Supple, full range of motion, no observable masses, No meningeal sign. Lungs: No Respiratory distress. CV: RRR, no edema. Abdomen: Soft, nondistended, No rebound tenderness. MSK: No joint swelling, no redness. Skin: No rashes, petechiae, lesions. Normal color per patient. Neuro: Normal Gait, Grossly intact. Psych: Appropriate for situation. Results & Data Results & Data Vital Signs (Past 12 Hours) Vital Signs Temp Pulse Pulse Resp BP Pulse Ox O2 Del Method 12/22/24 11:05 36.7 C 69 18 122/70 94 Room Air 12/22/24 06:14 36.5 C 54 L 16 147/56 H 98 Nasal Cannula 12/22/24 06:07 66 12/22/24 01:27 36.9 C 62 16 128/63 94 Nasal Cannula O2 Flow Rate 12/22/24 11:05 12/22/24 06:14 12/22/24 06:07 12/22/24 01:27 2 Laboratory Results -personally reviewed, Hgb continues to drop post op, leukocytosis downtrending, creatinine stable Medications Administered Acetaminophen (Acetaminophen 500 Mg Tab) 1,000 mg PO Q8H PRN PRN Reason: MILD Pain (1,2,3) & Pre PT Stop: 01/19/25 15:39 Last Admin: 12/21/24 07:14 Dose: 1,000 mg Documented By: KRISHNA Aspirin (Aspirin 81 Mg Ectab) 81 mg PO DAILY [facility] Stop: 01/20/25 08:59 Last Admin: 12/22/24 09:14 Dose: 81 mg Documented By: Admin: 12/21/24 09:22 Dose: 81 mg Documented By: KRISHNA Clonazepam (Clonazepam 0.5 Mg Tab) 0.5 mg PO QPM [facility] Stop: 01/19/25 20:59 Last Admin: 12/21/24 21:13 Dose: 0.5 mg Documented By: Admin: 12/20/24 20:19 Dose: 0.5 mg Documented By: KWAN Fluticasone Propionate (Fluticasone Propionate Na Spr 16 Gm Btl) 1 sprays NA BID [facility] Stop: 01/19/25 20:59 Last Admin: 12/22/24 09:16 Dose: 1 sprays Documented By: Admin: 12/21/24 21:12 Dose: 1 sprays Documented By: Admin: 12/21/24 09:23 Dose: 1 sprays Documented By: Admin: 12/20/24 20:23 Dose: 1 sprays Documented By: KWAN Hydromorphone HCl (Hydromorphone Inj 0.5 Mg/0.5 Ml Syr) 0.5 mg IV Q3H PRN PRN Reason: MODERATE Pain(4,5,6)/Pre PT Stop: 01/03/25 15:39 Last Admin: 12/22/24 01:35 Dose: 0.5 mg Documented By: Admin: 12/21/24 21:13 Dose: 0.5 mg Documented By: MEY Hydromorphone HCl (Hydromorphone Inj 1 Mg/Ml Syringe) 1 mg IV Q3H PRN PRN Reason: SEVERE Pain (7,8,9,10) Stop: 01/03/25 15:39 Last Admin: 12/22/24 06:49 Dose: 1 mg Documented By: MEY Dexamethasone 6 mg/ Syringe 1.5 mls @ 1 mls/min IV DAILY [facility] Stop: 12/23/24 09:02 Last Admin: 12/22/24 08:42 Dose: 1 mls/min Documented By: Admin: 12/21/24 09:20 Dose: 1 mls/min Documented By: KRISHNA Sodium Chloride (Nss) 500 mls @ 80 mls/hr IV .Q6H15M [facility] Stop: 12/22/24 14:29 Last Admin: 12/22/24 08:42 Dose: 80 mls/hr Documented By: SINTIA Insulin Aspart (Insulin Aspart Per Unit Charge) 0 units SC ACHS [facility] Stop: 01/19/25 20:59 Last Admin: 12/22/24 09:33 Dose: 6 units Documented By: SINTIA Co-signed By: QUER Admin: 12/21/24 21:12 Dose: 2 units Documented By: MEY Co-signed By: ROSETTE Admin: 12/21/24 18:16 Dose: 5 units Documented By: SINTIA Co-signed By: ISAÍAS Admin: 12/21/24 13:20 Dose: 4 units Documented By: SINTIA Co-signed By: QUER Admin: 12/21/24 08:27 Dose: 7 units Documented By: KRISHNA Co-signed By: Admin: 12/20/24 17:47 Dose: 8 units Documented By: KRISHNA Co-signed By: AM Insulin Glargine (Lantus Per Unit Charge) 0 units SC HS [facility]; Protocol Stop: 01/20/25 20:59 Last Admin: 12/21/24 21:13 Dose: Not Given Documented By: MEY Melatonin (Melatonin 3 Mg Tab) 3 mg PO HS [facility] Stop: 01/20/25 20:59 Last Admin: 12/21/24 21:13 Dose: 3 mg Documented By: MEY Multivitamins (Multivitamin Tab) 1 tab PO DAILY [facility] Stop: 01/20/25 08:59 Last Admin: 12/22/24 09:16 Dose: 1 tab Documented By: Admin: 12/21/24 09:21 Dose: 1 tab Documented By: KRISHNA Pantoprazole Sodium (Pantoprazole 40 Mg Tab) 40 mg PO DAILY [facility] Stop: 01/20/25 08:59 Last Admin: 12/22/24 09:51 Dose: 40 mg Documented By: Admin: 12/21/24 09:21 Dose: 40 mg Documented By: KRISHNA Polyethylene Glycol (Polyethylene (Miralax) 17 Gm Pack) 17 gm PO Q6 [facility] Stop: 01/20/25 05:59 Last Admin: 12/22/24 05:51 Dose: 17 gm Documented By: Admin: 12/22/24 00:45 Dose: 17 gm Documented By: Admin: 12/21/24 18:17 Dose: 17 gm Documented By: Admin: 12/21/24 13:20 Dose: 17 gm Documented By: Admin: 12/21/24 05:56 Dose: 17 gm Documented By: KWAN Propranolol HCl (Propranolol Hcl 20 Mg Tab) 20 mg PO BID [facility] Stop: 01/19/25 20:59 Last Admin: 12/22/24 09:27 Dose: Not Given Documented By: Admin: 12/21/24 21:12 Dose: 20 mg Documented By: Admin: 12/21/24 09:21 Dose: 20 mg Documented By: Admin: 12/20/24 20:24 Dose: 20 mg Documented By: KWAN Rosuvastatin Calcium (Rosuvastatin Calcium 20 Mg Tab) 40 mg PO DAILY [facility] Stop: 01/20/25 08:59 Last Admin: 12/22/24 09:14 Dose: 40 mg Documented By: Admin: 12/21/24 09:20 Dose: 40 mg Documented By: KRISHNA Senna/Docusate Sodium (Docusate Sodium/Senna 50/8.6mg Tab) 2 tab PO HS [facility] Stop: 01/19/25 20:59 Last Admin: 12/21/24 21:13 Dose: 2 tab Documented By: Admin: 12/20/24 20:19 Dose: 2 tab Documented By: KWAN Travoprost (Travoprost Z 0.004% Oph Soln 2.5 Ml Btl) 1 drops OP DAILY [facility] Stop: 01/20/25 08:59 Last Admin: 12/22/24 09:28 Dose: 1 drops Documented By: Admin: 12/21/24 09:25 Dose: 1 drops Documented By: KRISHNA Venlafaxine HCl (Venlafaxine Hcl Xr 150 Mg Capxr) 150 mg PO DAILY [facility] Stop: 01/20/25 08:59 Last Admin: 12/22/24 09:15 Dose: 150 mg Documented By: Admin: 12/21/24 09:21 Dose: 150 mg Documented By: KRISHNA Vitamin D (Cholecalciferol 25 Mcg (1000 Units) Tab) 100 mcg PO DAILY [facility] Stop: 01/20/25 08:59 Last Admin: 12/22/24 09:13 Dose: 100 mcg Documented By: Admin: 12/21/24 09:23 Dose: 100 mcg Documented By: KRISHNA
[2024-12-23 06:38] LABS: Hematocrit (blood only) 29.0 % (42.0-52.0); Hemoglobin 9.5 g/dl (14.0-18.0); Mean Corpuscular Hemoglobin 29.2 pg (25.0-34.0); Mean Corpuscular Volume 89.2 fL (80.0-100.0); Platelet Count 164 K/uL (130-400); RDW Standard Deviation 44.0 fL (36.4-46.3); Red Blood Count 3.25 M/uL (4.70-6.10); White Blood Count 14.12 K/ul (4.8-10.8)
[2024-12-23 07:01] LABS: Anion Gap 4.0 (3-11); Blood Urea Nitrogen 29.0 mg/dl (6-23); Calcium 8.5 mg/dl (8.6-10.3); Carbon Dioxide 32.0 mmol/L (21-32); Chloride 105.0 mmol/L (98-107); Creatinine Clr Calc Pharmacy 65.4 ml/min; Glucose 155.0 mg/dl (70-99(Fasting)); Potassium 4.7 mmol/L (3.5-5.1); Sodium 141.0 mmol/L (136-145)
[2024-12-23] MEDS: LANTUS PER UNIT CHARGE SC ONE (08:32)
[2024-12-23] MEDS: VENLAFAXINE HCL XR 37.5 MG CAPXR PO SCH (08:33)
--- NOTE | 2024-12-23 10:26 | Orthopedic Progress Note ---
Date of Service December 23, 2024 Assessment & Plan (1) Two-level lumbosacral spondylosis with radiculopathy: Plan: At this time we will continue physical therapy monitor his KARSON output. The plan is for discharge home with home health. I will wean him off narcotic m edications as this may be contributing to his delirium. Admission and Anticipated Discharge Date Admission Date: December 20, 2024 Subjective Patient sleeping at this time. Per the nurse he was up earlier today and tolerating physical therapy. Physical Exam Physical Exam: Patient is sleeping soundly and difficult to arouse. Results & Data Vital Signs (Past 12 Hours) Vital Signs Temp Pulse Resp BP Pulse Ox O2 Del Method 12/23/24 07:26 36.7 C 49 L 18 109/52 L 95 Room Air Queries Orthopedic Spine Acute Posthemorrhagic Anemia: Yes
--- NOTE | 2024-12-23 12:29 | Hospitalist Progress Note ---
Date of Service December 23, 2024 Assessment & Plan (1) Hyperactive delirium after surgical procedure: Plan: -patient alert and orriented x3 on exam -suspect post operative, hospital acquired delirium -much improved Plan: -delirium precautions -avoid anticholinergics -treat pain, agree with downtitrating pain medications -medically stable for discharge, discharge per ortho (2) Postoperative hypoxemia: Plan: -resolved (3) Two-level lumbosacral spondylosis with radiculopathy: Plan: -Status post L3-S1 decompression and fusion -POD 3 -trend Hgb, leukocytosis, creatinine in post op setting (4) Acute blood loss anemia: Plan: -significant blood loss noted in KARSON drain -also some blood in urine -iron studies acceptable Plan: -monitor KARSON drain output -trend Hgb (5) Sleep apnea: (6) Anxiety and depression: Plan: -Will continue his usual medications (7) Diabetes mellitus, type 2: Plan: -Will put him on sliding scale insulin (8) Hx of hyperlipidemia: Plan: -Continue statin Plan I spent a total of 40 minutes in direct patient care, including [id number] time with the patient and/or family, reviewing medical records, ordering and reviewing diagnostic tests, and coordinating care with other healthcare pr oviders. This time includes: history taking, physical examination, medical decision making, counseling, ECG interpretation, imaging interpretation, lab interpretation, orders, and education, excluding time spent in the performance of separately billed services. Admission and Anticipated Discharge Date Admission Date: December 20, 2024 Subjective Patient seen and examined at bedside. Patient doing well today, feels much better mentally. Review of Systems Review of Systems: CONSTITUTIONAL: Patient denies fevers, chills, sweats and weight changes. EYES: Patient denies any visual symptoms. EARS, NOSE, AND THROAT: No difficulties with hearing. No symptoms of rhinitis or sore throat. CARDIOVASCULAR: Patient denies chest pains, palpitations, orthopnea and parox ysmal nocturnal dyspnea. RESPIRATORY: No dyspnea on exertion, no wheezing or cough. GI: No nausea, vomiting, diarrhea, constipation, abdominal pain, hematochezia or melena. : No urinary hesitancy or dribbling. No nocturia or urinary frequency. No abnormal urethral discharge. MUSCULOSKELETAL: back pain NEUROLOGIC: No chronic headaches, no seizures. Patient denies numbness, tingling or weakness. PSYCHIATRIC: Patient denies problems with mood disturbance. No problems with anxiety. ENDOCRINE: No excessive urination or excessive thirst. DERMATOLOGIC: Patient denies any rashes or skin changes. Physical Exam Physical Exam: Gen: A&O 3 NAD HEENT: NCAT, EOMI, not icteric. External ears normal. No rhinorrhea. Moist mucous membranes. Neck: Supple, full range of motion, no observable masses, No meningeal sign. Lungs: No Respiratory distress. CV: RRR, no edema. Abdomen: Soft, nondistended, No rebound tenderness. MSK: No joint swelling, no redness. Skin: No rashes, petechiae, lesions. Normal color per patient. Neuro: Normal Gait, Grossly intact. Psych: Appropriate for situation. Results & Data Results & Data Vital Signs (Past 12 Hours) Vital Signs Temp Pulse Pulse Resp BP Pulse Ox O2 Del Method 12/23/24 12:17 65 12/23/24 11:34 36.5 C 53 L 18 152/73 H 95 Room Air 12/23/24 07:26 36.7 C 49 L 18 109/52 L 95 Room Air Laboratory Results -personally reviewed, leukocytosis downtrending, hgb stable post op, creatinine stable Medications Administered Acetaminophen (Acetaminophen 500 Mg Tab) 1,000 mg PO Q8H PRN PRN Reason: MILD Pain (1,2,3) & Pre PT Stop: 01/19/25 15:39 Last Admin: 12/23/24 08:31 Dose: 1,000 mg Documented By: Admin: 12/22/24 20:23 Dose: 1,000 mg Documented By: Admin: 12/21/24 07:14 Dose: 1,000 mg Documented By: KRISHNA Aspirin (Aspirin 81 Mg Ectab) 81 mg PO DAILY [facility] Stop: 01/20/25 08:59 Last Admin: 12/23/24 08:34 Dose: 81 mg Documented By: Admin: 12/22/24 09:14 Dose: 81 mg Documented By: Admin: 12/21/24 09:22 Dose: 81 mg Documented By: KRISHNA Clonazepam (Clonazepam 0.5 Mg Tab) 0.5 mg PO QPM [facility] Stop: 01/19/25 20:59 Last Admin: 12/22/24 20:23 Dose: 0.5 mg Documented By: Admin: 12/21/24 21:13 Dose: 0.5 mg Documented By: Admin: 12/20/24 20:19 Dose: 0.5 mg Documented By: KWAN Fluticasone Propionate (Fluticasone Propionate Na Spr 16 Gm Btl) 1 sprays NA BID [facility] Stop: 01/19/25 20:59 Last Admin: 12/23/24 08:35 Dose: 1 sprays Documented By: Admin: 12/22/24 20:23 Dose: 1 sprays Documented By: Admin: 12/22/24 09:16 Dose: 1 sprays Documented By: Admin: 12/21/24 21:12 Dose: 1 sprays Documented By: Admin: 12/21/24 09:23 Dose: 1 sprays Documented By: Admin: 12/20/24 20:23 Dose: 1 sprays Documented By: KWAN Insulin Aspart (Insulin Aspart Per Unit Charge) 0 units SC ACHS [facility] Stop: 01/19/25 20:59 Last Admin: 12/23/24 08:31 Dose: 6 units Documented By: SHWETA Co-signed By: VINEET Admin: 12/22/24 20:17 Dose: Not Given Documented By: Admin: 12/22/24 17:39 Dose: 4 units Documented By: SINTIA Co-signed By: ADDY Admin: 12/22/24 13:01 Dose: 6 units Documented By: SNITIA Co-signed By: ADDY Admin: 12/22/24 09:33 Dose: 6 units Documented By: SINTIA Co-signed By: ODELL Admin: 12/21/24 21:12 Dose: 2 units Documented By: MEY Co-signed By: ROSETTE Admin: 12/21/24 18:16 Dose: 5 units Documented By: SINTIA Co-signed By: ISAÍAS Admin: 12/21/24 13:20 Dose: 4 units Documented By: SINTIA Co-signed By: ODELL Admin: 12/21/24 08:27 Dose: 7 units Documented By: KRISHNA Co-signed By: Admin: 12/20/24 17:47 Dose: 8 units Documented By: KRISHNA Co-signed By: AM Melatonin (Melatonin 3 Mg Tab) 3 mg PO HS [facility] Stop: 01/20/25 20:59 Last Admin: 12/22/24 20:22 Dose: 3 mg Documented By: Admin: 12/21/24 21:13 Dose: 3 mg Documented By: MEY Multivitamins (Multivitamin Tab) 1 tab PO DAILY [facility] Stop: 01/20/25 08:59 Last Admin: 12/23/24 08:34 Dose: 1 tab Documented By: Admin: 12/22/24 09:16 Dose: 1 tab Documented By: Admin: 12/21/24 09:21 Dose: 1 tab Documented By: KRISHNA Pantoprazole Sodium (Pantoprazole 40 Mg Tab) 40 mg PO DAILY [facility] Stop: 01/20/25 08:59 Last Admin: 12/23/24 08:34 Dose: 40 mg Documented By: Admin: 12/22/24 09:51 Dose: 40 mg Documented By: Admin: 12/21/24 09:21 Dose: 40 mg Documented By: KRISHNA Polyethylene Glycol (Polyethylene (Miralax) 17 Gm Pack) 17 gm PO Q6 [facility] Stop: 01/20/25 05:59 Last Admin: 12/23/24 06:20 Dose: 17 gm Documented By: Admin: 12/22/24 23:37 Dose: 17 gm Documented By: Admin: 12/22/24 17:39 Dose: 17 gm Documented By: Admin: 12/22/24 13:06 Dose: 17 gm Documented By: Admin: 12/22/24 05:51 Dose: 17 gm Documented By: Admin: 12/22/24 00:45 Dose: 17 gm Documented By: Admin: 12/21/24 18:17 Dose: 17 gm Documented By: Admin: 12/21/24 13:20 Dose: 17 gm Documented By: Admin: 12/21/24 05:56 Dose: 17 gm Documented By: KWAN Propranolol HCl (Propranolol Hcl 20 Mg Tab) 20 mg PO BID [facility] Stop: 01/19/25 20:59 Last Admin: 12/23/24 08:26 Dose: Not Given Documented By: Admin: 12/22/24 20:22 Dose: 20 mg Documented By: Admin: 12/22/24 09:27 Dose: Not Given Documented By: Admin: 12/21/24 21:12 Dose: 20 mg Documented By: Admin: 12/21/24 09:21 Dose: 20 mg Documented By: Admin: 12/20/24 20:24 Dose: 20 mg Documented By: KWAN Rosuvastatin Calcium (Rosuvastatin Calcium 20 Mg Tab) 40 mg PO DAILY [facility] Stop: 01/20/25 08:59 Last Admin: 12/23/24 08:33 Dose: 40 mg Documented By: Admin: 12/22/24 09:14 Dose: 40 mg Documented By: Admin: 12/21/24 09:20 Dose: 40 mg Documented By: KRISHAN Senna/Docusate Sodium (Docusate Sodium/Senna 50/8.6mg Tab) 2 tab PO HS [facility] Stop: 01/19/25 20:59 Last Admin: 12/22/24 20:22 Dose: 2 tab Documented By: Admin: 12/21/24 21:13 Dose: 2 tab Documented By: Admin: 12/20/24 20:19 Dose: 2 tab Documented By: KWAN Travoprost (Travoprost Z 0.004% Oph Soln 2.5 Ml Btl) 1 drops OP DAILY [facility] Stop: 01/20/25 08:59 Last Admin: 12/23/24 08:36 Dose: 1 drops Documented By: Admin: 12/22/24 09:28 Dose: 1 drops Documented By: Admin: 12/21/24 09:25 Dose: 1 drops Documented By: KRISHNA Venlafaxine HCl (Venlafaxine Hcl Xr 37.5 Mg Capxr) 112.5 mg PO DAILY [facility] Stop: 01/22/25 08:59 Last Admin: 12/23/24 08:33 Dose: 112.5 mg Documented By: SHWETA Vitamin D (Cholecalciferol 25 Mcg (1000 Units) Tab) 100 mcg PO DAILY [facility] Stop: 01/20/25 08:59 Last Admin: 12/23/24 08:33 Dose: 100 mcg Documented By: Admin: 12/22/24 09:13 Dose: 100 mcg Documented By: Admin: 12/21/24 09:23 Dose: 100 mcg Documented By: KRISHNA
--- NOTE | 2024-12-23 12:48 | Pharmacy Report ---
Pharmacy Glycemic Short Note 2 - Date of Service December 23, 2024 - Glycemic Short BSG Results (Last 24 hours): 12/22/24 12/22/24 12/23/24 17:06 20:09 06:04 Glucose 155 H POC Glucose 166 H 133 H 12/23/24 12/23/24 08:03 12:07 Glucose POC Glucose 161 H 170 H OUTPATIENT ANTIDIABETIC REGIMEN: * glipizide 10mg po daily HbA1c: 7.6% on 11/28/24 ASSESSMENT: 12/23: * Huber received a total of 21 units of insulin yesterday with decent glycemic control * 5 units Lantus + 16 units Novolog * Fasting BSG of 161 mg/dL this morning. Will increase basal insulin for today only and reassess tomorrow AM due to today being last dose of dexamethasone IV. * Post prandial BSGs acceptable - will back off Novolog CF/CR on 12/24 12/21: * Huber is a 74 year old male who was admitted last evening for spinal decompression/fusion. Today is POD #1 and pharmacy has been consulted for glycemic management while he is admitted. * BSGs were all above goal postop yesterday. 10 units of regular IV insulin were given and the provider started him on a conservative bolus insulin regimen. * Fasting BSG was 224mg/dL this morning and corrected to 146mg/dL at lunch time. Carb ratio was tightened and a Lantus scale (0-5-or 10 units depending on BSG) was added at HS. Patient is on daily iv dexamethasone so it is expected that his blood glucose will increase again. PLAN FOR INPATIENT GLYCEMIC CONTROL: * Hold outpatient oral diabetes medications * Basal insulin * Lantus 7 units SC this AM x 1 * Bolus insulin * NovoLog per scale ACHS or Q6hrs while NPO * Goal Range: Low 110 mg/dL - High 140 mg/dL * Correction Factor: 30 mg/dL/unit * Nutritional / Prandial insulin per carb ratio of 1 unit per 10 grams CHO consumed
[2024-12-24 06:23] LABS: Hematocrit (blood only) 30.0 % (42.0-52.0); Hemoglobin 10.1 g/dl (14.0-18.0); Mean Corpuscular Hemoglobin 29.5 pg (25.0-34.0); Mean Corpuscular Volume 87.7 fL (80.0-100.0); Platelet Count 193 K/uL (130-400); RDW Standard Deviation 42.3 fL (36.4-46.3); Red Blood Count 3.42 M/uL (4.70-6.10); White Blood Count 11.52 K/ul (4.8-10.8)
[2024-12-24 06:39] LABS: Anion Gap 3.0 (3-11); Blood Urea Nitrogen 24.0 mg/dl (6-23); Calcium 8.5 mg/dl (8.6-10.3); Carbon Dioxide 33.0 mmol/L (21-32); Chloride 105.0 mmol/L (98-107); Creatinine Clr Calc Pharmacy 76.1 ml/min; Glucose 130.0 mg/dl (70-99(Fasting)); Potassium 4.8 mmol/L (3.5-5.1); Sodium 141.0 mmol/L (136-145)
--- NOTE | 2024-12-24 10:02 | Discharge Summary ---
Date of Service December 24, 2024 Admission HPI Per Admitting Provider This is a 74-year-old male who presents with chronic persistent back and bilateral leg pain after failing course of nonoperative care is here for surgical invention. Principal Diagnosis Lumbar spondylosis with radiculopathy Discharge Data Allergies Allergy/AdvReac Type Severity Reaction Status Date / Time No Known Allergies Allergy Verified 12/20/24 06:10 Consultations 12/20/24 14:01 Consult Hospitalist Routine 12/20/24 15:40 Consult Hospitalist Routine Procedures Performed Operation Date: 12/20/24 07:45 Actual Procedures p L3-S1 Decompression and Fusion(Not Applicable) - Evangelist Kaplan DO Ordered Studies 12/20/24 07:45 [place] lumbar spine 2-3V Routine 12/22/24 08:04 CT head/brain wo con Urgent Hospital Course (1) Two-level lumbosacral spondylosis with radiculopathy: Patient with multilevel lumbar depression fusion trial as well as taken orthopedic for postoperative posterior but he progressed provide slowly but appropriately. He is alert ambulating getting to the bathroom on his own. Back pain is controlled. Extra strength testing. No leg pain. KARSON drain decreasing. Subsequent discharge home. Discharge orders instructions from the chart for further review. Total Time Total Time Spent Total Time Spent (In Minutes): 20 minutes Discharge Plan Discharge Items Patient Disposition: Home - Home Health Services Reason For Visit: Lumbar Disc Disease with radiculpathy, Other Spond Discharge Diagnosis: Lumbar spondylosis with radiculopathy Activity: As commented below Non-emergency contact: Primary Care Provider Call non-emergency contact if: you have any medication questions Follow-up/Referrals: Stephanie Wallace CRNP [Primary Care Provider] - Diet: Regular Addtl Attending Provider Instructions: ACTIVITY RECOMMENDATIONS: SELF CARE INSTRUCTIONS AFTER THORACIC/LUMBAR FUSIONS 1. You may walk to your tolerance. It is good exercise for your legs and back. Expect some back and intermittent leg aches and pains. 2. You may perform "counter-top" level activities (make a sandwich, samina with a project, etc.). 3. No bending or lifting of more than 10 pounds or back twisting of any nature (roll like a log when turning in bed). 4. You may ride in a car for 20-30 minutes at a time. No driving until after your first visit with your doctor. 5. Frequent changes of position and restricting sitting to 30 minutes at a time will help limit the amount of back spasms and stiffness you may experience. 6. You may discontinue the use of ambulatory aids (cane, crutches, etc.) once your strength and confidence allow. 7. You may vending stand supervisor the shower and let water strike your incision when you arrive home at least once daily. Do not take a tub bath, sit in a hot tub or go into a swimming pool until after your first recheck in the office. 8. You may resume previous diet. SPECIAL CARE INSTRUCTIONS: VERY IMPORTANT TO READ AND REVIEW A. Your surgical incision has been closed with a cosmetic suture under the skin that will dissolve in about 6 weeks. In 14 days, you can use a pair of clean scissors and cut the suture that is left outside of the skin at the ends of your incision. 1. The small skin tapes can be removed 7 days after surgery if they have not fallen off by that point. 2. You may keep the wound open to air as much as possible to promote healing after post-op day number 5 unless told otherwise by your doctor. 3. If you think the wound looks like it is becoming infected (redness or worsening drainage) and/or you are experiencing fever, chill or worsening back pain and muscle spasms, contact the office so that we may evaluate you as soon as possible. B. Complications are uncommon, but please contact us if you have any signs or symptoms of: 1. wound infection (fever higher than 102.5 degrees F, redness, separation of wound, drainage, or increasing pain from the incision) 2. blood clots in legs (pain, swelling, redness and warmth in legs) 3. urinary tract infection (fever higher than 102.5 degrees F, burning upon urination or increased frequency of urination) 4. nerve problems (inability to walk on your toes or heels, numbness, loss of bowel or bladder control) 5. any other symptoms that concern you C. Please call the office at if you have any concerns or questions about your operation or recovery. D. No smoking! Smoking drastically decreases the chance of a solid fusion. E. Do not take any anti-inflammatory medications (Indocin, Advil, Motrin, Aspirin, Naprosyn, etc.) as these may inhibit the chance of a solid fusion. Tylenol is okay to take for pain. MANAGING PAIN AFTER SPINAL SURGERY 1. Narcotic medication is intended for short-term use and will be provided for surgical pain. Surgical pain usually lasts for a period of 4-6 weeks. Narcotic medication includes Percocet, Vicodin, Darvocet, Tylenol #3 or Lortab. 2. Longer-term pain is more appropriately treated with non-narcotic medication such as Tylenol ES. 3. Muscle spasm is not appropriately treated with narcotics. Muscle relaxers such as Soma, Flexeril or Skelaxin can be used along with Tylenol ES. 4. Remember that we all live with some "aches and pains". This is not unusual or uncommon after an injury or as we get older. a. Back pain is expected and may include muscle spasms for 4 to 6 weeks after surgery. The pain should gradually improve. If the pain worsens for no apparent reason, please contact the office. b. Intermittent leg pain may also be experienced and should not be concerned about unless it worsens for no apparent reason. If so, please contact the office. 5. We will provide appropriate medication within the normal guidelines of their prescribed use. We will also be very cautious and aware of potential abuse and extended duration of patients' medication needs. a. Pain medications are for your comfort and to assist with sleep and rest so that the tissue can heal. They are not provided in order to return to normal activity and should not be used through the day. To do so or worsening pain at night can result from ongoing tissue damage and development of tolerance to the prescribed medicine. 6. Please allow 2-3 days to process refills. Prescriptions will not be mailed but must be picked up at the office. FOLLOW UP VISIT: Keep your scheduled follow-up appointment. Any questions, please call the office at . Pending Studies at Discharge: No Stand-Alone Forms: [employer], Smoking Cessation Medications and DC Order Prescriptions: New tramadol 50 mg tablet 50 mg PO Q6H PRN (Reason: pain, moderate) Qty: 30 0RF Continued multivitamin Tablet 1 tab PO DAILY cetirizine 10 mg Tablet 10 mg PO DAILY glipizide 10 mg Tablet 10 mg PO DAILY clonazepam 0.5 mg Tablet 0.5 mg PO QPM venlafaxine 150 mg Capsule,Extended Release 24hr 150 mg PO DAILY travoprost [Travatan Z] 0.004 % Drops 1 drp OPHTHALMIC (EYE) DAILY amlodipine 5 mg Tablet 5 mg PO DAILY ferrous sulfate [Iron (ferrous sulfate)] 325 mg (65 mg iron) Tablet 325 mg PO UD Rx Instructions: mon/wed/fri lisinopril 10 mg Tablet 10 mg PO DAILY lansoprazole [Prevacid] 30 mg Capsule,Delayed Release(Dr/Ec) 30 mg PO DAILY betamethasone dipropionate 0.05 % Cream 1 applic TOPICAL DAILY PRN (Reason: Skin Irritation) montelukast 10 mg Tablet 10 mg PO DAILY zinc 50 mg Tablet 50 mg PO DAILY aspirin 81 mg Tablet 81 mg PO DAILY propranolol 20 mg Tablet 20 mg PO BID fluticasone propionate 50 mcg/actuation [place],Suspension 1 spray INTRANASAL BID Rx Instructions: administer into each nostril rosuvastatin 40 mg Tablet 40 mg PO DAILY melatonin 10 mg Tablet 10 mg PO HS Vitamin D3 100 mcg (4,000 unit) Capsule 4,000 unit PO DAILY Discharge Orders: Discharge Order (Routine); Ordered 12/24/24 Ordered By: Evangelist Kaplan Admission Data Admit Date/Time: 12/20/24 10:34 Attending Provider: Evangelist Kaplan Admit Provider: Evangelist Kaplan Primary Care Provider: Stephanie Wallace Other Providers: [employer] [facility]; Samantha Nice; Lalitha Clark.
[2024-12-24 11:25] VITALS: BP 148/80; PULSE 56; RESP 18; TEMP 98.4; O2SAT 98
--- NOTE | 2024-12-24 11:54 | Hospitalist Progress Note ---
Date of Service December 24, 2024 Assessment & Plan (1) Hyperactive delirium after surgical procedure: Plan: -patient alert and orriented x3 on exam -suspect post operative, hospital acquired delirium -much improved Plan: -resolved (2) Postoperative hypoxemia: Plan: -resolved (3) Two-level lumbosacral spondylosis with radiculopathy: Plan: -Status post L3-S1 decompression and fusion -POD 4 (4) Acute blood loss anemia: Plan: -significant blood loss noted in KARSON drain -also some blood in urine -iron studies acceptable (5) Sleep apnea: (6) Anxiety and depression: Plan: -Will continue his usual medications (7) Diabetes mellitus, type 2: Plan: -Will put him on sliding scale insulin (8) Hx of hyperlipidemia: Plan: -Continue statin Plan I spent a total of 35 minutes in direct patient care, including [id number] time with the patient and/or family, reviewing medical records, ordering and reviewing diagnostic tests, and coordinating care with other healthcare providers. This time includes: history taking, physical examination, medical decision making, counseling, ECG interpretation, imaging interpretation, lab interpretation, orders, and education, excluding time spent in the performance of separately billed services. Admission and Anticipated Discharge Date Admission Date: December 20, 2024 Subjective Patient sen and examined at bedside. Doing well this morning, looking forward to going home. Review of Systems Review of Systems: CONSTITUTIONAL: Patient denies fevers, chills, sweats and weight changes. EYES: Patient denies any visual symptoms. EARS, NOSE, AND THROAT: No difficulties with hearing. No symptoms of rhinitis or sore throat. CARDIOVASCULAR: Patient denies chest pains, palpitations, orthopnea and paroxysmal nocturnal dyspnea. RESPIRATORY: No dyspnea on exertion, no wheezing or cough. GI: No nausea, vomiting, diarrhea, constipation, abdominal pain, hematochezia or melena. : No urinary hesitancy or dribbling. No nocturia or urinary frequency. No abnormal urethral discharge. MUSCULOSKELETAL: back pain NEUROLOGIC: No chronic headaches, no seizures. Patient denies numbness, tingling or weakness. PSYCHIATRIC: Patient denies problems with mood disturbance. No problems with anxiety. ENDOCRINE: No excessive urination or excessive thirst. DERMATOLOGIC: Patient denies any rashes or skin changes. Physical Exam Physical Exam: Gen: A&O 3 NAD HEENT: NCAT, EOMI, not icteric. External ears normal. No rhinorrhea. Moist mucous membranes. Neck: Supple, full range of motion, no observable masses, No meningeal sign. Lungs: No Respiratory distress. CV: RRR, no edema. Abdomen: Soft, nondistended, No rebound tenderness. MSK: No joint swelling, no redness. Skin: No rashes, petechiae, lesions. Normal color per patient. Neuro: Normal Gait, Grossly intact. Psych: Appropriate for situation. Results & Data Results & Data Vital Signs (Past 12 Hours) Vital Signs Temp Pulse Pulse Resp BP BP Pulse Ox 12/24/24 11:24 36.9 C 56 L 18 148/80 H 98 12/24/24 10:10 12 97 12/24/24 07:47 36.5 C 53 L 12 183/77 H 97 12/24/24 07:42 12/24/24 06:59 53 L 12/24/24 04:08 36.3 C L 58 L 18 162/74 H 94 O2 Del Method 12/24/24 11:24 Room Air 12/24/24 10:10 12/24/24 07:47 Room Air 12/24/24 07:42 Room Air 12/24/24 06:59 12/24/24 04:08 Room Air Laboratory Results -personally reviewed, leukocytosis downtrending, Hgb stable post op, creatinine at baseline Medications Administered Acetaminophen (Acetaminophen 500 Mg Tab) 1,000 mg PO Q8H PRN PRN Reason: MILD Pain (1,2,3) & Pre PT Stop: 01/19/25 15:39 Last Admin: 12/24/24 07:44 Dose: 1,000 mg Documented By: Admin: 12/23/24 08:31 Dose: 1,000 mg Documented By: Admin: 12/22/24 20:23 Dose: 1,000 mg Documented By: Admin: 12/21/24 07:14 Dose: 1,000 mg Documented By: KRISHNA Aspirin (Aspirin 81 Mg Ectab) 81 mg PO DAILY [facility] Stop: 01/20/25 08:59 Last Admin: 12/24/24 07:45 Dose: 81 mg Documented By: Admin: 12/23/24 08:34 Dose: 81 mg Documented By: Admin: 12/22/24 09:14 Dose: 81 mg Documented By: Admin: 12/21/24 09:22 Dose: 81 mg Documented By: KRISHNA Bisacodyl (Bisacodyl 10 Mg Supp) 10 mg SC DAILY PRN PRN Reason: Constipation Stop: 01/19/25 15:39 Last Admin: 12/23/24 13:44 Dose: 10 mg Documented By: SHWETA Clonazepam (Clonazepam 0.5 Mg Tab) 0.5 mg PO QPM [facility] Stop: 01/19/25 20:59 Last Admin: 12/23/24 20:23 Dose: 0.5 mg Documented By: Admin: 12/22/24 20:23 Dose: 0.5 mg Documented By: Admin: 12/21/24 21:13 Dose: 0.5 mg Documented By: Admin: 12/20/24 20:19 Dose: 0.5 mg Documented By: KWAN Fluticasone Propionate (Fluticasone Propionate Na Spr 16 Gm Btl) 1 sprays NA BID [facility] Stop: 01/19/25 20:59 Last Admin: 12/24/24 07:46 Dose: 1 sprays Documented By: Admin: 12/23/24 20:23 Dose: 1 sprays Documented By: Admin: 12/23/24 08:35 Dose: 1 sprays Documented By: Admin: 12/22/24 20:23 Dose: 1 sprays Documented By: Admin: 12/22/24 09:16 Dose: 1 sprays Documented By: Admin: 12/21/24 21:12 Dose: 1 sprays Documented By: Admin: 12/21/24 09:23 Dose: 1 sprays Documented By: Admin: 12/20/24 20:23 Dose: 1 sprays Documented By: KWAN Insulin Aspart (Insulin Aspart Per Unit Charge) 0 units SC ACHS [facility] Stop: 01/19/25 20:59 Last Admin: 12/24/24 09:23 Dose: 3 units Documented By: MANE Co-signed By: VINEET Admin: 12/23/24 20:24 Dose: 5 units Documented By: HAFSA Co-signed By: high school vice principal: 12/23/24 17:56 Dose: 5 units Documented By: SHWETA Co-signed By: VINEET Admin: 12/23/24 12:45 Dose: 2 units Documented By: SHWETA Co-signed By: ADY Admin: 12/23/24 08:31 Dose: 6 units Documented By: SHWETA Co-signed By: VINEET Admin: 12/22/24 20:17 Dose: Not Given Documented By: Admin: 12/22/24 17:39 Dose: 4 units Documented By: SINTIA Co-signed By: ADDY Admin: 12/22/24 13:01 Dose: 6 units Documented By: SINTIA Co-signed By: ADDY Admin: 12/22/24 09:33 Dose: 6 units Documented By: SINTIA Co-signed By: ODELL Admin: 12/21/24 21:12 Dose: 2 units Documented By: MEY Co-signed By: ROSETTE Admin: 12/21/24 18:16 Dose: 5 units Documented By: SINTIA Co-signed By: ISAÍAS Admin: 12/21/24 13:20 Dose: 4 units Documented By: SINTIA Co-signed By: ODELL Admin: 12/21/24 08:27 Dose: 7 units Documented By: KRISHNA Co-signed By: Admin: 12/20/24 17:47 Dose: 8 units Documented By: KRISHNA Co-signed By: MANE(2) Melatonin (Melatonin 3 Mg Tab) 3 mg PO HS [facility] Stop: 01/20/25 20:59 Last Admin: 12/23/24 20:23 Dose: 3 mg Documented By: Admin: 12/22/24 20:22 Dose: 3 mg Documented By: Admin: 12/21/24 21:13 Dose: 3 mg Documented By: MEY Multivitamins (Multivitamin Tab) 1 tab PO DAILY [facility] Stop: 01/20/25 08:59 Last Admin: 12/24/24 07:46 Dose: 1 tab Documented By: Admin: 12/23/24 08:34 Dose: 1 tab Documented By: Admin: 12/22/24 09:16 Dose: 1 tab Documented By: Admin: 12/21/24 09:21 Dose: 1 tab Documented By: KRISHNA Pantoprazole Sodium (Pantoprazole 40 Mg Tab) 40 mg PO DAILY [facility] Stop: 01/20/25 08:59 Last Admin: 12/24/24 07:46 Dose: 40 mg Documented By: Admin: 12/23/24 08:34 Dose: 40 mg Documented By: Admin: 12/22/24 09:51 Dose: 40 mg Documented By: Admin: 12/21/24 09:21 Dose: 40 mg Documented By: KRISHNA Polyethylene Glycol (Polyethylene (Miralax) 17 Gm Pack) 17 gm PO Q6 [facility] Stop: 01/20/25 05:59 Last Admin: 12/24/24 10:59 Dose: Not Given Documented By: Admin: 12/24/24 06:07 Dose: Not Given Documented By: Admin: 12/24/24 00:51 Dose: Not Given Documented By: Admin: 12/23/24 17:56 Dose: 17 gm Documented By: Admin: 12/23/24 12:45 Dose: 17 gm Documented By: Admin: 12/23/24 06:20 Dose: 17 gm Documented By: Admin: 12/22/24 23:37 Dose: 17 gm Documented By: Admin: 12/22/24 17:39 Dose: 17 gm Documented By: Admin: 12/22/24 13:06 Dose: 17 gm Documented By: Admin: 12/22/24 05:51 Dose: 17 gm Documented By: Admin: 12/22/24 00:45 Dose: 17 gm Documented By: Admin: 12/21/24 18:17 Dose: 17 gm Documented By: Admin: 12/21/24 13:20 Dose: 17 gm Documented By: Admin: 12/21/24 05:56 Dose: 17 gm Documented By: KWAN Propranolol HCl (Propranolol Hcl 20 Mg Tab) 20 mg PO BID [facility] Stop: 01/19/25 20:59 Last Admin: 12/24/24 07:46 Dose: 20 mg Documented By: Admin: 12/23/24 20:24 Dose: 20 mg Documented By: Admin: 12/23/24 08:26 Dose: Not Given Documented By: Admin: 12/22/24 20:22 Dose: 20 mg Documented By: Admin: 12/22/24 09:27 Dose: Not Given Documented By: Admin: 12/21/24 21:12 Dose: 20 mg Documented By: Admin: 12/21/24 09:21 Dose: 20 mg Documented By: Admin: 12/20/24 20:24 Dose: 20 mg Documented By: KWAN Rosuvastatin Calcium (Rosuvastatin Calcium 20 Mg Tab) 40 mg PO DAILY [facility] Stop: 01/20/25 08:59 Last Admin: 12/24/24 07:45 Dose: 40 mg Documented By: Admin: 12/23/24 08:33 Dose: 40 mg Documented By: Admin: 12/22/24 09:14 Dose: 40 mg Documented By: Admin: 12/21/24 09:20 Dose: 40 mg Documented By: KRISHNA Senna/Docusate Sodium (Docusate Sodium/Senna 50/8.6mg Tab) 2 tab PO HS [facility] Stop: 01/19/25 20:59 Last Admin: 12/23/24 20:23 Dose: 2 tab Documented By: Admin: 12/22/24 20:22 Dose: 2 tab Documented By: Admin: 12/21/24 21:13 Dose: 2 tab Documented By: Admin: 12/20/24 20:19 Dose: 2 tab Documented By: KWAN Travoprost (Travoprost Z 0.004% Oph Soln 2.5 Ml Btl) 1 drops OP DAILY [facility] Stop: 01/20/25 08:59 Last Admin: 12/24/24 07:50 Dose: Not Given Documented By: Admin: 12/23/24 08:36 Dose: 1 drops Documented By: Admin: 12/22/24 09:28 Dose: 1 drops Documented By: Admin: 12/21/24 09:25 Dose: 1 drops Documented By: KRISHNA Venlafaxine HCl (Venlafaxine Hcl Xr 37.5 Mg Capxr) 112.5 mg PO DAILY [facility] Stop: 01/22/25 08:59 Last Admin: 12/24/24 07:45 Dose: 112.5 mg Documented By: Admin: 12/23/24 08:33 Dose: 112.5 mg Documented By: SHWETA Vitamin D (Cholecalciferol 25 Mcg (1000 Units) Tab) 100 mcg PO DAILY [facility] Stop: 01/20/25 08:59 Last Admin: 12/24/24 07:45 Dose: 100 mcg Documented By: Admin: 12/23/24 08:33 Dose: 100 mcg Documented By: Admin: 12/22/24 09:13 Dose: 100 mcg Documented By: Admin: 12/21/24 09:23 Dose: 100 mcg Documented By: KRISHNA
== END 2024-12-24 13:07 | disposition home health service (06) | DRG 427 ==
LOC: ASU 05:52 → 2E 10:34 → 2W 12-21 11:35